=== PATIENT | male | born 1965 | race Caucasian/White ===

== ENCOUNTER 2017-03-14 11:31 | Emergency (ER) | payer OTHER ==
[~2017-03-14] VITALS: Ht 182.9 cm; Wt 89.8 kg
[~2017-03-14 11:31] MED LIST: HYDR-5688 PO; IBUP-1428 PO; METHADONE LIQUID PO
[2017-03-14 11:34] VITALS: TEMP 36.9; Ht 182.9 cm; Wt 89.8 kg
[2017-03-14] MEDS ORDERED: METH5TAB2 PO (11:45)
[2017-03-14] MEDS ORDERED: CLC/300 PO (12:10)
--- NOTE | 2017-03-14 12:11 | EMERGENCY ROOM VISIT NOTE ---
ED Visit Note First contact with patient: 11:37 CHIEF COMPLAINT: Right upper dental pain and facial swelling 3 days HISTORY OF PRESENT ILLNESS: Patient is a 51-year-old white male who presents to the emergency department from his dentist office for evaluation of right facial swelling due to a dental abscess. Patient reports his teeth are grossly decayed and he is scheduled to have a complete extraction performed by Dr. Mcneal in [place] on April 05. He was seen by a female dentist at [facility] couple of weeks ago. She pulled one tooth at that time, and place the patient on some antibiotics. She set him up with the oral surgeon for an extraction. He reports that they could've pulled the teeth sooner but he is going away on vacation over Memorial Day and wanted to wait until after his medication to have the teeth pulled. He states that he had a prescription for penicillin, but had been off of antibiotics for a couple of weeks. On Sunday he began to notice some increased discomfort and swelling in the right upper lateral central incisor. He states that this tooth has given him problems before. It had been loose, but appears to have tightened up more recently. He states the pain started Sunday morning, then swelling develop into his right upper cheek Sunday evening. He started penicillin 500 mg every 6 hours at that time. He notes the pain and the throbbing have subsided but he still has swelling in the right upper cheek. He has been taking ibuprofen for discomfort. He went back to the dentist today, and she stated that there was nothing she could do for him , but she directed him here to the emergency department to have the area "drained." The patient denies any fever. He states that the pain is better since he has started the antibiotics and rates his discomfort a 0/10. He denies any blood, pus or foul tasting fluid in his mouth. REVIEW OF SYSTEMS: Review of systems as per HPI. All other systems reviewed were negative. At least 6 systems reviewed. PMH: Electronic medical records are reviewed and summarized as above/below. See Problem List. Patient has a history of opioid dependence secondary to his chronic low back pain after his surgery many years ago. He has been on methadone therapy, and is weaning, he states he is down to 5 mg per day and expects to be off within the next week. SOCIAL HISTORY: Patient lives at home with his spouse. Positive tobacco and alcohol use, does not specify the amounts. He is employed. PHYSICAL EXAM: Vital Signs: Reviewed Nurse's notes. CONSTITUTIONAL: Patient is a well-appearing 51-year-old white male who is awake and alert and in no acute distress. Vital signs are stable. EARS: Tympanic membranes intact, not inflamed, have normal contour. External canals clear. MOUTH: Overall the patient has poor dentition. Generalized dental decay and gingival disease is noted. The right upper lateral incisor is loose, grossly carious, but not significantly tender to percussion. There is slight swelling along the gumline although no focal abscess. Mucous membranes moist, no lesions , tongue and gums appear normal. THROAT: No pharyngeal injection, exudates, or tonsillar hypertrophy. Airway is patent. No trismus noted. FACE: Patient and induration of the right cheek, no associated fluctuance or cellulitic changes noted. NECK: No lymphadenopathy. ED course: The patient was seen and assessed as above. His old records are reviewed. He has gross dental decay and no doubt has an apical abscess at the right upper lateral incisor in question. He has expected inflammatory/reactive changes into the right cheek and face. He does not have any evidence for drainable abscess in the mouth, no facial cellulitis. There is no evidence for Ramy's angina. He was treated with Rocephin 1 g IM in the emergency department. He will continue the pen VK, but was provided a prescription for clindamycin, should he not show any significant changes in the next 24-48 hours. He was encouraged to follow up with his oral surgeon as he has scheduled for extraction, but was welcome to return to the emergency department at any point if his symptoms are worsening. Problem List Medical Problems: (1) Lumbar stenosis Status: Resolved Surgical Problems: (1) History of lumbar fusion Status: Resolved Current/Historical Medications Scheduled Clindamycin HCl (Clindamycin HCl), 1 CAP PO TID Methadone Hcl (Dolophine), 5 MG PO DAILY Allergies Coded Allergies: No Known Allergies (Verified , 04/17/16) Vital Signs Date Time Temp Pulse Resp B/P Pulse Ox O2 Delivery O2 Flow Rate FiO2 03/14/17 12:22 95 18 172/94 97 03/14/17 11:34 36.9 108 20 143/98 98 Room Air Medications Administered Medications (Trade) Dose Ordered Sig/Laureano Route Start Time Stop Time Status Last Admin Dose Admin Ceftriaxone Sodium (Rocephin Im) 1,000 mg NOW ONCE IM 03/14/17 12:15 03/14/17 12:16 DC 03/14/17 12:15 1,000 MG Departure Information Impression Primary Impression: Dental abscess Prescriptions Clindamycin HCl (Clindamycin HCl) 300 Mg Cap 1 CAP PO TID for 10 Days, #30 CAP 1 Refill Prov: Dang Pitts PA 03/14/17 Referrals No Doctor, Assigned (PCP) Patient Instructions [facility] Additional Instructions Finish penicillin as prescribed. If your symptoms do not improve in the next 48-72 hours, stop the penicillin and take the clindamycin. Clindamycin 300 mg: Take one pill 3 times daily for 10 days for your dental infection. All antibiotics can cause diarrhea. If this occurs and you feel worse or it does not resolve in 1-2 days follow up with your doctor or return to the Emergency Department as this could be signs of serious underlying problems. Any medication can cause an allergic reaction, stop the pills immediately and return to the ER for rash, hives, breathing difficulties, or swelling. Ibuprofen(Motrin, Advil) may be used for fever or pain. Use 600mg every six hours as needed. Take with food. Avoid using more than 2400mg in a 24 hour period. Do not use 2400mg per day for more than three consecutive days without physician direction. Prolonged inappropriate use can lead to stomach upset or ulcers. (AND/OR) Acetaminophen(Tylenol) may be used for fever or pain. Use 1000mg every six hours as needed. Avoid using more than 4000mg in a 24 hour period. Saltwater gargles after meals and before bedtime. Soft foods. Return to the emergency department for increasing pain or swelling, fevers, vomiting, inability to swallow, worsening symptoms or as needed. Follow-up with your oral surgeon as you have scheduled for extraction.
[2017-03-14] MEDS ORDERED: CEFTRIAXONE SOD 350MG/ML 1 GM VIAL IM ONE (12:15)
[2017-03-14 12:22] VITALS: BP 172/94; PULSE 95; O2SAT 97
== END 2017-03-14 12:23 | disposition home or self-care (01) ==
LOC: C.EDB 11:31 → C.EDD 12:23
DX: K04.7 Periapical abscess without sinus (principal); M54.5 Low back pain; G89.29 Other chronic pain; F11.20 Opioid dependence, uncomplicated; Z72.0 Tobacco use; Z79.899 Other long term (current) drug therapy

== ENCOUNTER 2018-03-16 10:37 | Emergency (ER) | payer OTHER ==
[~2018-03-16] VITALS: Ht 180.3 cm; Wt 94.2 kg
[2018-03-16 10:45] VITALS: TEMP 36.7; Ht 180.3 cm; Wt 94.2 kg
[2018-03-16] MEDS ORDERED: HYDR-3983 PO (11:01)
[2018-03-16] MEDS ORDERED: KETO10TA PO (11:39)
[2018-03-16 11:49] VITALS: BP 145/90; PULSE 67; O2SAT 95
--- NOTE | 2018-03-16 15:01 | EMERGENCY ROOM VISIT NOTE ---
ED Visit Note First contact with patient: 11:00 Chief Complaint: Back pain. History of Present Illness: Mr. Mercado is a 52-year-old white male who ambulates into the ED complaining of lumbar back pain. Historically patient reports approximately 10 years ago he had a discectomy and spinal fusion done by Dr. Glover. He was having difficulty and was most recently seen by Dr. Meier and was told he would need a revision. He was given a steroid injection a few weeks ago and started having worsening pain. He was placed on oral steroids and had no additional relief. He was prescribed narcotics for his pain and he is running out of his pain medication. He reports he saw Dr. Meier yesterday and was told that another steroid injection would be needed but that would have to be held off for approximately 1 month. Additionally they talked about additional narcotic prescriptions even though he does have one that his current and it was encouraged that he follow up with his primary care provider. He reports [place] the [place] the [place] and his pain is still severe. He attempted to follow-up with his primary care provider and was unsuccessful. He presents today for possible prescription for narcotics. Currently he is complaining of pain just right lateral to the lumbar spine at the L3 L5 area. He describes his pain as a pressure, achy and sharp sensation. He rates his discomfort 9/10. He denies true radiation of pain but does report he has a achy sensation down the anterior thighs bilaterally and minimally into the bilateral buttocks. His pain worsens with all movement of the back, palpation. He has not identified any alleviating factors related to the pain. He has been using his prescribed narcotics and steroids without relief of his discomfort. Associated with his pain he does report that sometimes when he is walking and talking his legs become weak and he feels like he is legs are going to collapse; but this has not happened. He reports some mild numbness sensation in his scrotum and testicles. He denies recent direct or repetitive trauma, fevers, chills, sweats, skin eruptions, skin color changes, decreased appetite, abdominal pain, nausea/ vomiting, leg numbness/tingling, bowel or bladder dysfunction, rectal paresthesias. Review of Systems: As noted above in history of present illness. All body systems were reviewed and found to be negative as noted above. Past Medical History: As previously noted. Current Medications: [place]. Allergies to Medications: Patient denies. Social History: Patient is currently employed; he feels safe in his home environment; he admits tobacco and alcohol use. Physical Examination: Vital Signs: Date Time Temp Pulse Resp B/P (MAP) Pulse Ox O2 Delivery O2 Flow Rate FiO2 03/16/18 11:49 67 145/90 95 03/16/18 10:45 36.7 81 18 133/62 94 Room Air GENERAL: 52-year-old male in mild to moderate distress due to pain, nontoxic- appearing, afebrile and hemodynamically stable. NEUROLOGICAL: Awake, alert and oriented to person, place and time. Answering questions appropriately and following commands. Normal gait. Good hand eye coordination. No focal motor or sensory deficits. SKIN: Warm, dry and pink. No soft tissue eruptions or trauma noted. HEENT: Atraumatic and normocephalic. BACK: No tenderness over the bony thoracic and lumbar spine. No paraspinous muscle spasm. No bony deformity or crepitus. Minimally positive left lower extremity straight leg raise test. Negative on the right. No CVA tenderness. THORAX: Lungs sounds are clear to auscultation and equal bilaterally with symmetrical chest wall. ABDOMEN: Flat, soft and nontender. Positive bowel sounds in all quadrants. No guarding, rigidity or organomegaly. EXTREMITIES: Moves all extremities well on command and with purpose. All distal neurovascular statuses are intact and equal bilaterally. No calf tenderness or cords. 5/5 muscle strength in all movements of the hips, knees, ankles and feet. +2 Achilles and patellar deep tendon reflexes intact and equal bilaterally. Able to distinguish light sensations to all dermatomes of the lower legs and feet. ED Course: Patient is assessed as noted above. Patient's medication list was reviewed. Patient's case was reviewed with Dr. Broussard; we agreed on diagnostic approach, treatment, disposition and plan. Patient was educated about today's findings and instructed on his treatment plan ; he verbalized understanding and agreement with this plan. Clinical Impression: Acute on chronic lumbar back pain. Disposition: Patient discharged home in stable condition; prior to departure he was reassessed and subjectively reported he was feeling slightly better and rated his discomfort 6/10. Plan: Patient was encouraged to continue his medications as prescribed including his narcotics. Patient was prescribed 10 mg of Toradol every 6 hours between his narcotic prescription for pain. Patient was encouraged use ice on areas of pain 5-6 times a day for 1230-45 minutes. Patient was encouraged to follow-up with his back surgeon on return to the area for definitive care and treatment. Patient was encouraged to return to the emergency department for worsening pain , fevers bowel and bladder dysfunction, rectal paresthesias, lower extremity weakness and numbness or any new/concerning symptoms.
[2018-03-19] MEDS ORDERED: KETO10TA PO (14:22)
[2018-03-19] MEDS ORDERED: METH1TAB81 PO (14:22)
[2018-03-19] MEDS ORDERED: IBUP-1459 PO (14:22)
== END 2018-03-16 11:45 | disposition home or self-care (01) ==
LOC: C.EDB 10:39 → C.EDD 11:45
DX: M54.5 Low back pain (principal); G89.29 Other chronic pain; Z98.1 Arthrodesis status; Z79.899 Other long term (current) drug therapy; Z72.0 Tobacco use

== ENCOUNTER → 2018-03-28 | Day surgery (SDC) | payer OTHER ==
[2018-03-19 14:23] VITALS: Ht 180.3 cm; Wt 95.5 kg
[~2018-03-28] VITALS: Ht 180.3 cm; Wt 95.5 kg
[~2018-03-28] MED LIST changes: +DEXAMETHASONE SOD INJ 4 MG/ML VIAL ONE; +HYDR-3714 PO; -HYDR-5688 PO; -IBUP-1428 PO; +IBUP-1459 PO; +KETO10TA PO; +LIDOCAINE HCL 1% MPF 5 ML VIAL ONE; +METH1TAB81 PO; -METHADONE LIQUID PO
--- NOTE | 2018-03-28 08:21 | History & Physical Bridge - SC ---
H&P Re-Evaluation Bridge Note: I have examined the patient, reviewed the History & Physical and in the interval since the performance of the History & Physical I have noted the following changes of clinical significance: No changes noted
--- NOTE | 2018-03-28 08:41 | Discharge Instructions-SurgCtr ---
Discharge Instructions Date of Service March 28, 2018. Visit Reason for Visit: Lumbar Spinal Stenosis Discharge Discharge Diagnosis / Problem: same Discharge Goals Goal(s): Improve function Activity Recommendations Activity Limitations: resume your previous activity Anesthesia . Post Anesthesia Instructions: If you have had General Anesthesia or IV Sedation: * Do not drive today. * Resume driving when surgeon permits. * Do not make important decisions or sign legal documents today. * Call surgeon for: 1. Temperature elevations greater than 101 degrees F. 2. Uncontrollable pain. 3. Excessive bleeding. 4. Persistent nausea and vomiting. 5. Medication intolerance (nausea, vomiting or rash). * For nausea and vomiting use only clear liquids such as: tea, soda, bouillon until nausea subsides, then gradually increase diet as tolerated. * If you have any concerns or questions, call your surgeon's office. If physician is unavailable and it is an emergency, call 911 or go to the nearest emergency room. . Diet Recommendations Home Diet: no limitations Procedures Procedures Performed: EPIDURAL STEROID INJECTION L2-3 Pending Studies Studies pending at discharge: no Medical Emergencies . Who to Call and When: Medical Emergencies: If at any time you feel your situation is an emergency, please call 911 immediately. . Non-Emergent Contact Non-Emergency issues call your: Primary Care Provider Call Non-Emergent contact if: your pain is concerning you . . "Provider Documentation" section prepared by Deng Meier. .
--- NOTE | 2018-03-28 08:41 | [facility] Post Operative Brief Note ---
Immediate Operative Summary Operative Date March 28, 2018. Pre-Operative Diagnosis LUMBAR SPINAL STENOSIS Post-Operative Diagnosis LUMBAR SPINAL STENOSIS Procedure(s) Performed EPIDURAL STEROID INJECTION L2-[address] Cris HARVEY Physical Therapist Technician Surgeon(s) 0 Estimated Blood Loss 0 Findings Consistent with Post-Op Diagnosis Specimens 0 Anesthesia Type Local Overlapping Procedure I was immediately available: during the entire case
[2018-03-28 08:42] VITALS: TEMP 36.9
[2018-03-28 09:01] VITALS: BP 142/93; PULSE 59; O2SAT 97
--- NOTE | 2018-03-28 09:25 | OPERATIVE REPORT ---
DATE OF OPERATION: 03/28/2018 PREOPERATIVE DIAGNOSIS: Stenosis lumbar spine L2-3. POSTOPERATIVE DIAGNOSIS: Same. PROCEDURE: Epidural steroid 2-3 lumbar central. DESCRIPTION OF PROCEDURE: The patient was taken to the minor procedure room and placed prone, prepped and draped sterile. I engaged the 22 gauge Tuohy needle to the 2-3 interspace using fluoroscopic guidance. 2 mL of dexamethasone injected without incident. There were no complications. No problems. He was returned to PACU improved stable condition. I attest to the content of the Intraoperative Record and any orders documented therein. Any exception s are noted below.
== END | disposition home or self-care (01) ==
LOC: X.SURG 07:09
PROVIDERS: ATTEND Orthopaedic Surgery Orthopaedic Surgery of the Spine
DX: M48.061 Spinal stenosis, lumbar region without neurogenic claudication (principal); F17.200 Nicotine dependence, unspecified, uncomplicated

== ENCOUNTER 2024-03-10 13:44 | Observation (INO) ==
[2024-03-10 14:49] LABS: Basophils # (auto) 0.04 K/uL (0.00-0.20); Basophils % (auto) 0.3 %; Eosinophils # (auto) 0.02 K/uL (0.00-0.50); Eosinophils % (auto) 0.2 %; Hematocrit (blood only) 51.5 % (42.0-52.0); Hemoglobin 17.1 g/dl (14.0-18.0); Immature Granulocytes # (auto) 0.18 K/uL (0.01-0.20); Immature Granulocytes % (auto) 1.4 %; Lymphocytes # (auto) 1.19 K/uL (1.20-3.40); Lymphocytes % (auto) 9.5 %; Mean Corpuscular Hemoglobin 30.1 pg (25.0-34.0); Mean Corpuscular Hgb Conc 33.2 g/dL (32.0-36.0); Mean Corpuscular Volume 90.5 fL (80.0-100.0); Mean Platelet Volume 9.3 fL (9.4-12.4); Monocytes # (auto) 0.81 K/uL (0.11-0.59); Monocytes % (auto) 6.5 %; Neutrophils # (auto) 10.28 K/uL (1.40-6.50); Neutrophils % (auto) 82.1 %; Platelet Count 314 K/uL (130-400); RDW Coefficient of Variation 13.2 % (11.5-14.5); RDW Standard Deviation 43.6 fL (36.4-46.3); Red Blood Count 5.69 M/uL (4.70-6.10); White Blood Count 12.52 K/ul (4.8-10.8)
[2024-03-10 14:55] LABS: Albumin Level 4.9 gm/dl (3.4-5.0); Calcium 9.8 mg/dl (8.6-10.3)
[2024-03-10 15:01] LABS: Troponin I High Sensitivity 9.9 pg/ml (0-20)
--- NOTE | 2024-03-10 15:09 | Emergency Department Note ---
History of Present Illness General Chief complaint: Abdominal Pain Stated complaint: chest pains Time Seen by Provider: 03/10/24 15:06 History of Present Illness Maximum Pain Intensity: 10 NAME: RAMON GONSALES AGE: 58 SEX: M : 1965 ARRIVES VIA: Walk-In INFORMANT: Patient ED PROVIDER(S): SARA Sales, Clovis Lantigua MD The patient is a pleasant 58-year-old male who arrives to the emergency department for epigastric abdominal pain. He reports that the pain began yesterday around noon, however today the pain has extended into his lower abdomen. He reports the pain is persistent, with nausea and vomiting. He denies chest pain, shob, fevers, recent illnesses, new foods, urinary or bowel issues. Home Medications Medication Instructions Recorded Confirmed Type ibuprofen 800 mg tablet 800 mg PO Q6H PRN Pain 08/12/20 03/10/24 History medical marjuana .Route 09/11/22 12/14/23 History rosuvastatin 5 mg tablet (Crestor) 5 mg PO DAILY #90 tabs 10/09/23 03/10/24 Rx oxycodone 5 mg tablet 5 - 10 mg (1 - 2 x 5 mg) PO Q6H 03/10/24 Rx PRN pain #14 tabs Allergies Allergy/AdvReac Type Severity Reaction Status Date / Time No Known Allergies Allergy Verified 12/14/23 13:28 Past Med/Surg History Medical History (Updated 03/11/24 @ 09:25 by SARA Dahl) Acute appendicitis with localized peritonitis Chronic back pain Medical marijuana use for severe back pain Surgical History H/O colonoscopy 08/2020 History of tooth extraction all teeth History of lumbar fusion x2 Family History Father Diabetes Myocardial infarction Other Clotting disorder No family history of adverse response to anesthesia Denies family history of Ovarian cancer Prostate cancer Breast cancer Colorectal cancer Social History Smoking Status: Current every day smoker Tobacco Type: Cigarettes Cigarettes Per Day: 15; Second Hand Exposure: Yes (parents smoked); Do You Dip or Chew Tobacco: No; Hx Alcohol Use: Yes Alcohol type: beer Alcohol Intake Frequency: 2-4 x/Month Hx Substance Use: Yes Prescribed Medications: Marijuana Last Used Substance: Unknown Last Used Substance Other:: uses daily Preferred Language: Syriac Communication Ability: Effective Visual Impairment: No Limitations Hearing Ability: Hard of Hearing Recooperer Required: No Beliefs That Will Affect Care: None marital status: Single Current Living Situation: Family and Significant Other Current Living Situation Comment: Lives with and son current occupational status: employed current occupation: [employer] Other Information That Helps Us Care for You: No Feels Safe at Home: Yes Safety Concerns: Feels Safe At This Time Childhood Exposure to Second-Hand Smoke: Yes Dental Care, Regularly: No Physical Activity Frequency: Does not Exercise Physical Activity Frequency Comment: active at work Seatbelt Use: always Sunscreen Use: No Assistive Devices: Denture - Upper, Denture - Lower and Glasses Physical Exam Vital Signs Vital Signs - 24 hr 03/10/24 13:47 03/10/24 15:42 03/10/24 16:03 Temperature 36.8 C Temperature Source Oral Pulse Rate 122 H Pulse Rate [Left Apical] 110 H 112 H Pulse Rhythm Regular Pulse Rhythm [Left Apical] Regular Pulse Strength Normal Pulse Strength [Left Apical] Normal Respiratory Rate 20 20 Respiratory Effort / Characteristics Non-Labored Spontaneous Non-Labored Spontaneous Respiratory Depth Normal Normal Respiratory Pattern Regular Blood Pressure 161/113 H Blood Pressure [Left Arm] 166/116 H 156/116 H Blood Pressure Mean 129 Blood Pressure Mean [Left Arm] 132 129 Blood Pressure Position Sitting Blood Pressure Position [Left Arm] Pulse Oximetry 98 92 94 Oxygen Delivery Method Room Air Room Air Sepsis Recent Fever Within 48 Hours No Sepsis New/Unexplained Change in Mental Status No Sepsis Action Taken by Nursing No Action Required 03/10/24 17:05 03/10/24 17:08 03/10/24 17:15 Temperature 37.3 C Temperature Source Oral Pulse Rate Pulse Rate [Left Apical] 114 H 110 H Pulse Rhythm Pulse Rhythm [Left Apical] Regular Pulse Strength Pulse Strength [Left Apical] Normal Respiratory Rate 18 19 Respiratory Effort / Characteristics Non-Labored Spontaneous Respiratory Depth Normal Respiratory Pattern Regular Blood Pressure Blood Pressure [Left Arm] 132/99 151/111 H Blood Pressure Mean Blood Pressure Mean [Left Arm] 110 124 Blood Pressure Position Blood Pressure Position [Left Arm] Semi-fowlers Pulse Oximetry 92 92 Oxygen Delivery Method Room Air Room Air Room Air Sepsis Recent Fever Within 48 Hours Sepsis New/Unexplained Change in Mental Status Sepsis Action Taken by Nursing VITALS: Vitals are noted on the nurse's note and reviewed by myself. Vital signs stable. GENERAL: 58-year-old male, in no acute distress, nondiaphoretic, well-developed well-nourished. SKIN: The skin was without rashes, erythema, edema, or bruising. HEAD: Normocephalic atraumatic. HEART: Regular rate and rhythm without murmurs gallops or rubs. LUNGS: Clear to auscultation bilaterally without wheezes, rales or rhonchi. No retractions or accessory muscle use. ABDOMEN: Positive bowel sounds x 4. Soft, tender to palpation diffusely, no rebound tenderness or guarding. NEURO: Patient was alert and oriented to person place and time. No focal neurological deficits. Course Administered Medications Acetaminophen (Acetaminophen 500 Mg Tab) 1,000 mg PO Q8H [facility] Stop: 04/09/24 20:59 Last Admin: 03/11/24 04:47 Dose: 1,000 mg Documented By: Admin: 03/10/24 20:54 Dose: Not Given Documented By: CONG Lactated Ringer's (Lr) 1,000 mls @ 80 mls/hr IV .[id number] [facility] Stop: 04/09/24 19:56 Last Infusion: 03/11/24 07:51 Dose: 80 mls/hr Documented By: Admin: 03/11/24 04:47 Dose: 125 mls/hr Documented By: Infusion: 03/11/24 04:47 Dose: Infused Documented By: Admin: 03/10/24 20:54 Dose: 125 mls/hr Documented By: CONG Piperacillin Sod/Tazobactam (Sod 4.5 gm/ Dextrose) 100 mls @ 25 mls/hr IV Q8H [facility]; Protocol Stop: 03/21/24 01:59 Last Infusion: 03/11/24 06:06 Dose: Infused Documented By: Admin: 03/11/24 01:59 Dose: 25 mls/hr Documented By: CONG Ketorolac Tromethamine (Ketorolac Tromethamine 15 Mg/Ml Vial) 15 mg IV Q6H [facility] Stop: 03/15/24 20:59 Last Admin: 03/11/24 08:03 Dose: 15 mg Documented By: Admin: 03/11/24 02:00 Dose: 15 mg Documented By: Admin: 03/10/24 20:54 Dose: Not Given Documented By: CONG Discontinued Medications Bupivacaine HCl (Bupivacaine 0.5 % 5 Mg/1 Ml Mpf 30ml Vial) Confirm Administered Dose 30 ml .ROUTE .STK-MED ONE Stop: 03/10/24 17:09 Last Admin: 03/10/24 18:34 Dose: 30 ml Documented By: NIKO Cefoxitin Sodium (Cefoxitin Sod 1,000 Mg Vial) Confirm Administered Dose 1,000 mg .ROUTE .STK-MED ONE Stop: 03/10/24 17:28 Last Admin: 03/10/24 17:50 Dose: 1,000 mg Documented By: DAO Cefoxitin Sodium (Cefoxitin Sod 1,000 Mg Vial) Confirm Administered Dose 1,000 mg .ROUTE .STK-MED ONE Stop: 03/10/24 17:29 Last Admin: 03/10/24 17:50 Dose: 1,000 mg Documented By: DAO Sodium Chloride (Nss) 1,000 mls @ 999 mls/hr IV .Q1H1M ONE Stop: 03/10/24 16:15 Last Infusion: 03/10/24 20:14 Dose: Infused Documented By: Admin: 03/10/24 15:33 Dose: 999 mls/hr Documented By: GARCIA Cefoxitin Sodium 2,000 mg/ (Dextrose) 50 mls @ 100 mls/hr IV NOW STA; Protocol Stop: 03/10/24 17:57 Last Admin: 03/10/24 17:50 Dose: Not Given Documented By: DAO Piperacillin Sod/Tazobactam (Sod 4.5 gm/ Dextrose) 100 mls @ 200 mls/hr IV NOW ONE; Protocol Stop: 03/10/24 20:44 Last Infusion: 03/10/24 21:32 Dose: Infused Documented By: Admin: 03/10/24 20:53 Dose: 200 mls/hr Documented By: CONG Ioversol (Optiray 320 100ml) 94 ml IV ONCE ONE Stop: 03/10/24 15:56 Last Admin: 03/10/24 15:55 Dose: 94 ml Documented By: MEERA Ketorolac Tromethamine (Ketorolac Tromethamine 15 Mg/Ml Vial) 10 mg IV NOW ONE Stop: 03/10/24 15:16 Last Admin: 03/10/24 15:35 Dose: 10 mg Documented By: GARCIA Labetalol HCl (Labetalol Hcl Iv 5 Mg/Ml 20ml) 5 mg IV Q5M PRN PRN Reason: PACU Use-SBP>160 or DBP>100 Stop: 03/11/24 01:17 Last Admin: 03/10/24 19:22 Dose: 5 mg Documented By: MARGA Co-signed By: RUMA Admin: 03/10/24 19:17 Dose: 5 mg Documented By: MARGA Co-signed By: WT Morphine Sulfate (Morphine Sulfate 4 Mg/Ml 1 Ml Carp\Vial) 4 mg IV NOW STA Stop: 03/10/24 15:16 Last Admin: 03/10/24 15:35 Dose: 4 mg Documented By: GARCIA Ondansetron HCl (Ondansetron Inj 2 Mg/Ml 2 Ml Vial) 4 mg IV NOW STA Stop: 03/10/24 15:16 Last Admin: 03/10/24 15:35 Dose: 4 mg Documented By: GARCIA Medical Decision Making Differential Diagnosis Appendicitis, testicular torsion, infections, diverticulitis, UTI, obstruction, mesenteric ischemia, aortic pathology, inflammatory bowel disease, renal colic, PUD, pancreatitis, biliary pathology, hernia, volvulus, constipation, as well as other pathologies. Medical Records Attestation: I reviewed the patient's medical records. Home Medications Current Medication List: was personally reviewed by me Laboratory Data Attestation: I reviewed the patient's lab results. Leukocytosis, 12.52, stable hemoglobin and hematocrit, troponin 9.9, urinalysis negative for infection. 03/10/24 14:08 03/10/24 14:08 Lab Results 03/10/24 03/10/24 03/10/24 Range/Units 14:08 15:30 17:20 WBC 12.52 H (4.8-10.8) K/ul RBC 5.69 (4.70-6.10) M/uL Hgb 17.1 (14.0-18.0) g/dl Hct 51.5 (42.0-52.0) % MCV 90.5 (80.0-100.0) fL MCH 30.1 (25.0-34.0) pg MCHC 33.2 (32.0-36.0) g/dL RDW Std Deviation 43.6 (36.4-46.3) fL RDW Coeff of Michelle 13.2 (11.5-14.5) % Plt Count 314 (130-400) K/uL MPV 9.3 L (9.4-12.4) fL Immature Gran % (Auto) 1.4 % Neut % (Auto) 82.1 % Lymph % (Auto) 9.5 % [place] % (Auto) 6.5 % Eos % (Auto) 0.2 % Baso % (Auto) 0.3 % Neut # (Auto) 10.28 H (1.40-6.50) K/uL Lymph # (Auto) 1.19 L (1.20-3.40) K/uL [place] # (Auto) 0.81 H (0.11-0.59) K/uL Eos # (Auto) 0.02 (0.00-0.50) K/uL Baso # (Auto) 0.04 (0.00-0.20) K/uL Immature Gran # (Auto) 0.18 (0.01-0.20) K/uL Sodium 136 (136-145) mmol/L Potassium 3.6 (3.5-5.1) mmol/L Chloride 101 (98-107) mmol/L Carbon Dioxide 23 (21-32) mmol/L Anion Gap 12 H (3-11) BUN 16 (6-23) mg/dl Creatinine 0.95 (0.6-1.4) mg/dl Est Cr Clr Drug Dosing 102.2 ml/min Est GFR ( Amer) 103.3 ml/min Est GFR (Non-Af Amer) 89.1 ml/min BUN/Creatinine Ratio 16.8 (10-20) Glucose 147 H (70-99(Fasting)) mg/dl POC Glucose 113 H (70-99) mg/dl Calcium 9.8 (8.6-10.3) mg/dl Total Bilirubin 0.9 (0.2-1.0) mg/dl AST 24 (13-39) U/L ALT 21 (7-52) U/L Alkaline Phosphatase 54 (34-104) U/L Troponin I High Sens 9.9 (0-20) pg/ml Total Protein 8.1 (6.0-8.3) gm/dl Albumin 4.9 (3.4-5.0) gm/dl Globulin 3.2 (2.5-4.0) gm/dl Albumin/Globulin Ratio 1.5 (0.9-2) Lipase 9 L (11-82) U/L Urine Color [place] Urine Appearance Cloudy A (Clear) Urine pH 5.5 (4.5-7.5) Ur Specific [place] 1.029 (1.000-1.030) Urine Protein 3+ H (Negative) Urine Glucose (UA) Negative (Negative) Urine Ketones Trace H (Negative) Urine Blood Trace H (Negative) Urine Nitrite Negative (Negative) Urine Bilirubin 1+ H (Negative) Urine Urobilinogen Negative (Negative) Ur Leukocyte Esterase Trace H (Negative) Urine WBC (Auto) 0-5 (0-5) /hpf Urine RBC (Auto) 0-2 (0-2) /hpf U Hyaline Cast (Auto) 3-5 H (0-2) /lpf U Epithel Cells (Auto) 3-5 H (0-2) /hpf Urine Bacteria (Auto) None Seen (None Seen) Urine Mucus Present A (None Prsent) Imaging Data Radiologist's Impression: Abdomen/Pelvis CT 03/10/24 15:15 CT abd pelvis IV con only CLINICAL HISTORY: diffuse pain TECHNIQUE: Helical axial images of the abdomen and pelvis were obtained and displayed. Automated dose lowering techniques and/or adjustment according to patient size were utilized for this exam. This exam was performed with intravenous contrast. CT DOSE: 1256.55 mGy.cm COMPARISON: Comparison is made to CT abdomen pelvis 05/05/2010 FINDINGS: Lower chest: No acute abnormality. Liver: Hepatic steatosis is noted. Gallbladder and biliary tree: No calcified gallstones. Normal caliber wall. No intra- or extrahepatic biliary ductal dilation. Pancreas: Unremarkable, no focal lesions. Spleen: Calcifications are noted in the spleen compatible with prior granulomatous disease. Adrenals: Unremarkable. Kidneys and ureters: Unremarkable. Bladder: Limited evaluation due to underdistention. Reproductive organs: Unremarkable. Bowel: The appendix is enlarged with a thickened wall, measuring up to 12 mm in diameter. There is surrounding fat stranding but no pneumoperitoneum or fluid collection. Diverticulosis is seen without diverticulitis. Lymph nodes Retroperitoneal: Unremarkable. Pelvic: Unremarkable. Mesenteric: Unremarkable. Peritoneum: Normal. Vessels: Unremarkable. Abdominal wall: Bilateral fat-containing inguinal hernias are seen. Bones: Degenerative changes in the visualized spine. Posterior fixation hardware spans L3-S1. IMPRESSION: 1. Findings are compatible with acute appendicitis without evidence of perforation or abscess formation. 2. Hepatic steatosis. ACT 112: Negative or not required by law. Electronically signed by: Slade Cherry M.D. 03/10/2024 4:23 PM ECG Data Attestation: I personally reviewed and interpreted this ECG as follows: Indication: + abdominal pain Rate (beats per minute): 122 Rhythm: + sinus tachycardia ECG [place]: + Normal ECG ST segments: + Normal ST segments Change: the following changes noted (02/[address] elevation in inferior leads) Blood Pressure Blood Pressure Findings: Elevated blood pressure Blood Pressure Disposition: elevated BP felt to be situational MDM Narrative The patient is a 58-year-old male who arrives to the emergency department for the above-stated complaint. Upon examination, the patient has diffuse TTP with tachycardia. A saline lock was placed, cbc, cmp, lipase, troponin, ekg and urinalysis were obtained. The patient was provided with IV NSS bolus, 4mg IV zofran, as well as toradol and morphine for pain control. CBC show slight leukocytosis, CMP shows no electrolyte abnormalities, lipase, and troponin negative. Urinalysis was negative for infection, and EKG shows sinus tachycardia at a rate of [address] elevation, depression, or ectopy. A CT of the abdomen and pelvis was obtained with showed an acute appendicitis. I contacted Dr. Eller of general surgery who agree to admit the patient with transfer to the OR. Please refer to Dr. Valentin's note for further patient care at this time. Continuous case monitor: Order was placed for continuous case monitor. Patient was placed on the case monitor. Patient was noted to be in sinus tachycardia at an initial rate of 110 bpm. Impression & Plan Abdominal pain, Acute appendicitis Discharge Plan Visit Data Chief Complaint: Abdominal Pain Stated Complaint: chest pains ED Provider: Clovis Lantigua ED Midlevel Provider: Rose Faye Discharge Problem: Abdominal pain, Acute appendicitis Patient Disposition: Admitted As Inpatient Discharge Instructions Interventions: ED Discharge Assessment Last Done: 03/10/24 17:08
[2024-03-10 15:18] LABS: Bilirubin,Total 0.9 mg/dl (0.2-1.0); Potassium 3.6 mmol/L (3.5-5.1)
[2024-03-10 15:24] LABS: Albumin Globulin Ratio 1.5 (0.9-2); BUN Creatinine Ratio 16.8 (10-20); Creatinine Clr Calc Pharmacy 102.2 ml/min; Est GFR (African American) 103.3 ml/min; Est GFR (Non-African American) 89.1 ml/min; Globulin 3.2 gm/dl (2.5-4.0); Total Protein 8.1 gm/dl (6.0-8.3)
[2024-03-10] MEDS: SODIUM CHLORIDE 0.9% 1,000 ML IV ONE (15:33)
[2024-03-10] MEDS: ONDANSETRON INJ 2 MG/ML 2 ML VIAL IV STA (15:35)
[2024-03-10] MEDS: KETOROLAC TROMETHAMINE 15 MG/ML VIAL IV ONE (15:35)
[2024-03-10] MEDS: MoRPHine SULFATE 4 MG/ML 1 ML CARP\\VIAL IV STA (15:35)
[2024-03-10] MEDS: OPTIRAY 320 100ml IV ONE (15:55)
--- NOTE | 2024-03-10 16:25 | CT Scan Report ---
CT abd pelvis IV con only CLINICAL HISTORY: diffuse pain TECHNIQUE: Helical axial images of the abdomen and pelvis were obtained and displayed. Automated dose lowering techniques and/or adjustment according to patient size were utilized for this exam. This e xam was performed with intravenous contrast. CT DOSE: 1256.55 mGy.cm COMPARISON: Comparison is made to CT abdomen pelvis 05/05/2010 FINDINGS: Lower chest: No acute abnormality. Liver: Hepatic steatosis is noted. Gallbladder and biliary tree: No calcified gallstones. Normal caliber wall. No intra- or extrahepatic biliary ductal dilation. Pancreas: Unremarkable, no focal lesions. Spleen: Calcifications are noted in the spleen compatible with prior granulomatous disease. Adrenals: Unremarkable. Kidneys and ureters: Unremarkable. Bladder: Limited evaluation due to underdistention. Reproductive organs: Unremarkable. Bowel: The appendix is enlarged with a thickened wall, measuring up to 12 mm in diameter. There is hodges rrounding fat stranding but no pneumoperitoneum or fluid collection. Diverticulosis is seen without d iverticulitis. Lymph nodes Retroperitoneal: Unremarkable. Pelvic: Unremarkable. Mesenteric: Unremarkable. Peritoneum: Normal. Vessels: Unremarkable. Abdominal wall: Bilateral fat-containing inguinal hernias are seen. Bones: Degenerative changes in the visualized spine. Posterior fixation hardware spans L3-S1. IMPRESSION: 1. Findings are compatible with acute appendicitis without evidence of perforation or abscess format ion. 2. Hepatic steatosis. ACT 112: Negative or not required by law. Electronically signed by: Slade Cherry M.D. 03/10/2024 4:23 PM
[2024-03-10 16:30] LABS: Appearance Urine Cloudy (Clear); Bacteria Urine Automated None Seen (None Seen); Bilirubin Urine 1+ (Negative); Blood Urine Trace (Negative); Color Urine Orange; Glucose Urine UA Negative (Negative); Ketones Urine Trace (Negative); Leukocyte Esterase Urine Trace (Negative); Mucus Urine Present (None Prsent); Nitrite Urine Negative (Negative); Protein Urine 3+ (Negative); RBC Urine Automated 0-2 /hpf (0-2); Specific Gravity Urine 1.029 (1.000-1.030); Urobilinogen Urine Negative (Negative); WBC Urine Automated 0-5 /hpf (0-5); pH Urine 5.5 (4.5-7.5)
--- NOTE | 2024-03-10 16:57 | Anesthesiology Consultation ---
Date of Service March 10, 2024 Assessment & Plan (1) Encounter for pre-operative examination: Chart Review Chart Review: Acceptable Risk for Surgery History Surgery Operation Date: 03/10/24 10:30 Proposed Procedures p Laparoscopic Appendectomy - Kj Eller DO, FACS Height/Weight Height: 5 ft 11 in Weight: 95 kg Allergies Allergy/AdvReac Type Severity Reaction Status Date / Time No Known Allergies Allergy Verified 12/14/23 13:28 Medications Home Medications Medication Instructions Recorded Confirmed Last Taken ibuprofen 800 mg tablet 800 mg PO Q6H PRN Pain 08/12/20 03/10/24 03/09/24 medical marjuana .Route 09/11/22 12/14/23 03/09/24 rosuvastatin 5 mg tablet (Crestor) 5 mg PO DAILY #90 tabs 10/09/23 03/10/24 03/09/24 Past Medical History Medical History Chronic back pain Medical marijuana use for severe back pain Past Family History Family History Father Diabetes Myocardial infarction Other Clotting disorder No family history of adverse response to anesthesia Denies family history of Ovarian cancer Prostate cancer Breast cancer Colorectal cancer Past Surgical History Surgical History H/O colonoscopy 08/2020 History of tooth extraction all teeth History of lumbar fusion x2 Social History Smoking Status: Never smoker tobacco type: cigarettes and smokeless tobacco Smoking cigarettes per day: 10 a day Do You Dip or Chew Tobacco: Yes (1 can every week) Hx Alcohol Use: Yes Alcohol type: beer alcohol intake frequency: a few times a month Hx Substance Use: Yes (medical marijuana card) substance use type: marijuana Last Used Substance Other:: uses daily Physical Exam Vital Signs Last Vital Signs Temp 36.8 C 03/10/24 13:47 Pulse 112 H 03/10/24 16:03 Resp 20 03/10/24 15:42 BP 156/116 H 03/10/24 16:03 Pulse Ox 94 03/10/24 16:03 O2 Del Method Room Air 03/10/24 16:03 Testing Laboratory Results 03/10/24 14:08 03/10/24 14:08 Urine Color [place] 03/10/24 15:30 Urine Appearance Cloudy (Clear) A 03/10/24 15:30 Urine pH 5.5 (4.5-7.5) 03/10/24 15:30 Ur Specific [place] 1.029 (1.000-1.030) 03/10/24 15:30 Urine Protein 3+ (Negative) H 03/10/24 15:30 Urine Glucose (UA) Negative (Negative) 03/10/24 15:30 Urine Ketones Trace (Negative) H 03/10/24 15:30 Urine Nitrite Negative (Negative) 03/10/24 15:30 Ur Leukocyte Esterase Trace (Negative) H 03/10/24 15:30 Urine WBC (Auto) 0-5 /hpf (0-5) 03/10/24 15:30 Urine RBC (Auto) 0-2 /hpf (0-2) 03/10/24 15:30 U Hyaline Cast (Auto) 3-5 /lpf (0-2) H 03/10/24 15:30 U Epithel Cells (Auto) 3-5 /hpf (0-2) H 03/10/24 15:30 Urine Bacteria (Auto) None Seen (None Seen) 03/10/24 15:30 Electrocardiogram Date: 03/10/24 Findings: + ST @ (122)
[2024-03-10] MEDS ORDERED: PROPOFOL IV EMULSION 10 MG/ML 20 ML VIAL IV ONE (17:12)
[2024-03-10] MEDS ORDERED: fentaNYL citrate PF 100 MCG/2 ML VIAL ONE (17:13)
[2024-03-10] MEDS ORDERED: LIDOCAINE 2% 2 ML VIAL/AMP(20MG/ML) INFIL ONE (17:13)
[2024-03-10] MEDS ORDERED: MIDAZOLAM HCL 1 MG/ML 2ML VIAL ONE (17:14)
[2024-03-10] MEDS ORDERED: ROCURONIUM BROMIDE 10 MG/ML 5 ML VIAL IV ONE (17:15)
[2024-03-10] MEDS ORDERED: HYDROmorphone INJ 1 MG/ML SYRINGE IV PRN (17:17)
[2024-03-10] MEDS ORDERED: PROMETHAZINE HCL 6.25 MG in SODIUM CHLORIDE 0.9% 50 ML IV PRN (17:17)
[2024-03-10] MEDS ORDERED: ONDANSETRON INJ 2 MG/ML 2 ML VIAL IV PRN (17:17)
[2024-03-10] MEDS ORDERED: KETOROLAC 30 MG/ML VIAL IV PRN (17:17)
[2024-03-10] MEDS ORDERED: ATROPINE SULFATE 0.1 MG/ML 10ML SYR IV PRN (17:17)
--- NOTE | 2024-03-10 17:19 | History & Physical Report ---
Date of Service March 10, 2024 Assessment & Plan (1) Acute appendicitis with localized peritonitis: Plan: Acute appendicitis plan for laparoscopic appendectomy risks discussed to include bleeding, infection, normal appendix, need for future or more extensive surgery, damage to surrounding structures, abscess, conversion to open, and risks of anesthesia Abx pre op likely discharge from pacu wound care instructions, activity restrictions, and return precautions given f/u in 2 weeks (2) Tobacco dependence: (3) History of lumbar fusion: (4) Hyperlipidemia: (5) Medical marijuana use: (6) Chronic back pain: History of Present Illness Chief Complaint: abd pain Primary Care Provider: Yoseph Bailey DO Presented to ED w/ 24 hours of abd pain. [place] a little discomfort and sick over last week. Last night had epigastric pain, this morning migrated to RLQ. No prior abd surgeries, no significant medical problems. No blood thinners. Allergies Allergy/AdvReac Type Severity Reaction Status Date / Time No Known Allergies Allergy Verified 12/14/23 13:28 Home Medications Medication Instructions Recorded Confirmed Type ibuprofen 800 mg tablet 800 mg PO Q6H PRN Pain 08/12/20 03/10/24 History medical marjuana .Route 09/11/22 12/14/23 History rosuvastatin 5 mg tablet (Crestor) 5 mg PO DAILY #90 tabs 10/09/23 03/10/24 Rx Past Med/Surg History Medical History (Updated 03/10/24 @ 17:17 by Kj Eller DO, FACS) Acute appendicitis with localized peritonitis Chronic back pain Medical marijuana use for severe back pain Surgical History H/O colonoscopy 08/2020 History of tooth extraction all teeth History of lumbar fusion x2 Family History Father Diabetes Myocardial infarction Other Clotting disorder No family history of adverse response to anesthesia Denies family history of Ovarian cancer Prostate cancer Breast cancer Colorectal cancer Social History Smoking Status: Never smoker Tobacco Type: Cigarettes Cigarettes Per Day: 10 a day; Second Hand Exposure: Yes (parents smoked); Do You Dip or Chew Tobacco: Yes (1 can every week); Hx Alcohol Use: Yes Alcohol type: beer Alcohol Intake Frequency: 2-4 x/Month Hx Substance Use: Yes (medical marijuana card) Prescribed Medications: Marijuana Last Used Substance Other:: uses daily Preferred Language: Uzbek Communication Ability: Effective Visual Impairment: No Limitations Hearing Ability: Hard of Hearing Party Plan Dealer Required: No Beliefs That Will Affect Care: None marital status: Single Current Living Situation: Spouse and Family Current Living Situation Comment: Lives with and son current occupational status: employed current occupation: [employer] Feels Safe at Home: Yes Childhood Exposure to Second-Hand Smoke: Yes Dental Care, Regularly: No Physical Activity Frequency: Does not Exercise Physical Activity Frequency Comment: active at work Seatbelt Use: always Sunscreen Use: No Assistive Devices: Denture - Upper, Denture - Lower and Glasses Review of Systems Review of Systems: All systems reviewed & are unremarkable except as noted in HPI & below Physical Exam Constitutional: WD/WN, vitals as above + overweight Respiratory: normal respiratory effort, lungs clear to auscultation Cardiovascular: RRR, no murmur, no edema Gastrointestinal (Abdomen): Percussion/Palpation: + abdomen tender (RLQ w/ guarding), + guarding and abdomen soft; abdomen not rigid and no hepatosp lenomegaly Results & Data Results & Data Vital Signs (Past 12 Hours) Vital Signs Temp Pulse Pulse Resp BP BP Pulse Ox 03/10/24 17:08 03/10/24 17:05 114 H 18 132/99 92 03/10/24 16:03 112 H 156/116 H 94 03/10/24 15:42 110 H 20 166/116 H 92 03/10/24 13:47 36.8 C 122 H 20 161/113 H 98 O2 Del Method 03/10/24 17:08 Room Air 03/10/24 17:05 Room Air 03/10/24 16:03 Room Air 03/10/24 15:42 03/10/24 13:47 Room Air Laboratory Results Laboratory Results - last 24 hr 03/10/24 03/10/24 14:08 15:30 WBC 12.52 H RBC 5.69 Hgb 17.1 Hct 51.5 MCV 90.5 MCH 30.1 MCHC 33.2 RDW Std Deviation 43.6 RDW Coeff of Michelle 13.2 Plt Count 314 MPV 9.3 L Immature Gran % (Auto) 1.4 Neut % (Auto) 82.1 Lymph % (Auto) 9.5 Crook % (Auto) 6.5 Eos % (Auto) 0.2 Baso % (Auto) 0.3 Neut # (Auto) 10.28 H Lymph # (Auto) 1.19 L Crook # (Auto) 0.81 H Eos # (Auto) 0.02 Baso # (Auto) 0.04 Immature Gran # (Auto) 0.18 Sodium 136 Potassium 3.6 Chloride 101 Carbon Dioxide 23 Anion Gap 12 H BUN 16 Creatinine 0.95 Est Cr Clr Drug Dosing 102.2 Est GFR ( Amer) 103.3 Est GFR (Non-Af Amer) 89.1 BUN/Creatinine Ratio 16.8 Glucose 147 H Calcium 9.8 Total Bilirubin 0.9 AST 24 ALT 21 Alkaline Phosphatase 54 Troponin I High Sens 9.9 Total Protein 8.1 Albumin 4.9 Globulin 3.2 Albumin/Globulin Ratio 1.5 Lipase 9 L Urine Color [place]don Urine Appearance Cloudy A Urine pH 5.5 Ur Specific Heth 1.029 Urine Protein 3+ H Urine Glucose (UA) Negative Urine Ketones Trace H Urine Blood Trace H Urine Nitrite Negative Urine Bilirubin 1+ H Urine Urobilinogen Negative Ur Leukocyte Esterase Trace H Urine WBC (Auto) 0-5 Urine RBC (Auto) 0-2 U Hyaline Cast (Auto) 3-5 H U Epithel Cells (Auto) 3-5 H Urine Bacteria (Auto) None Seen Urine Mucus Present A Diagnostic Findings CT personally reviewed and interpreted, note acute appendicitis w/o perforation or abscess. Umb hernia. Abdomen/Pelvis CT 03/10/24 15:15 CT abd pelvis IV con only CLINICAL HISTORY: diffuse pain TECHNIQUE: Helical axial images of the abdomen and pelvis were obtained and displayed. Automated dose lowering techniques and/or adjustment according to patient size were utilized for this exam. This exam was performed with intravenous contrast. CT DOSE: 1256.55 mGy.cm COMPARISON: Comparison is made to CT abdomen pelvis 05/05/2010 FINDINGS: Lower chest: No acute abnormality. Liver: Hepatic steatosis is noted. Gallbladder and biliary tree: No calcified gallstones. Normal caliber wall. No intra- or extrahepatic biliary ductal dilation. Pancreas: Unremarkable, no focal lesions. Spleen: Calcifications are noted in the spleen compatible with prior granulomatous disease. Adrenals: Unremarkable. Kidneys and ureters: Unremarkable. Bladder: Limited evaluation due to underdistention. Reproductive organs: Unremarkable. Bowel: The appendix is enlarged with a thickened wall, measuring up to 12 mm in diameter. There is surrounding fat stranding but no pneumoperitoneum or fluid collection. Diverticulosis is seen without diverticulitis. Lymph nodes Retroperitoneal: Unremarkable. Pelvic: Unremarkable. Mesenteric: Unremarkable. Peritoneum: Normal. Vessels: Unremarkable. Abdominal wall: Bilateral fat-containing inguinal hernias are seen. Bones: Degenerative changes in the visualized spine. Posterior fixation hardware spans L3-S1. IMPRESSION: 1. Findings are compatible with acute appendicitis without evidence of perforat ion or abscess formation. 2. Hepatic steatosis. ACT 112: Negative or not required by law. Electronically signed by: Slade Cherry M.D. 03/10/2024 4:23 PM PG Care Time/CCT Total # of Minutes Spent Total Time Spent with Patient: Total time spent is greater than 50% in coordination of care (as documented) at patient's floor/unit and/or counseling patient: Coding Level of Care Code 56717 INT INP/OBS CARE 2/55MIN Diagnoses Acute appendicitis with localized peritonitis K35.30 Tobacco dependence F17.200 History of lumbar fusion Z98.1 Hyperlipidemia E78.5 Medical marijuana use Z79.899 Chronic back pain M54.9; G89.29
[2024-03-10] MEDS: cefOXitin 2,000 MG in DEXTROSE 5 % MINI-B 50 ML IV STA (17:50)
[2024-03-10] MEDS: cefOXitin SOD 1,000 MG VIAL ONE ×2 (17:50)
[2024-03-10] MEDS ORDERED: DEXAMETHASONE SOD INJ 4 MG/ML VIAL ONE ×2 (17:52→17:53)
[2024-03-10] MEDS ORDERED: METOPROLOL TARTRATE 1 MG/ML VIAL IV ONE (17:52)
[2024-03-10] MEDS: BUPIVACAINE 0.5 % 5 MG/1 ML MPF 30ML VIAL ONE (18:34)
--- NOTE | 2024-03-10 18:43 | Operative Report ---
PG Post Operative Report Pre & Post Diagnosis Operation Date: 03/10/24 10:30 Pre-Op Diagnosis: Acute appendicitis with localized peritonitis Post-Op Diagnosis: Severe Acute Appendicitis with a contained Perforation I identified the patient and participated in the time-out.: Yes Procedure Operation Date: 03/10/24 10:30 Actual Procedures p Laparoscopic Appendectomy(Not Applicable) - Kj Eller DO, ADEOLA Surgeon Kj Eller DO, ADEOLA Regulatory Leader None Estimated Blood Loss 10 Findings Consistent with Post-Op Diagnosis Evidence of peritonitis in the abdomen. Severe acute appendicitis, partially r etrocecal with contained perforation. Specimens Appendix Anesthesia Type General Complications none Disposition Accompanied Patient To Recovery: No Disposition: Recovery Room Indications 58-year-old male presented with signs and symptoms of acute appendicitis confirmed by CT scan. Plan for laparoscopic appendectomy. The risks of the procedure were discussed, all questions were answered, and the patient agreed to proceed with surgery as planned. Description of Procedure The patient was properly identified, consented, and taken to the operating room where he was placed in the supine position. General endotracheal anesthesia was induced. SCDs and a safety belt were placed. Preoperative antibiotics were administered. A Santos catheter was not placed. The patient's abdomen was prepped and draped in the standard sterile fashion. Surgical timeout was performed and all parties were in agreement that this was the correct patient and procedure to be performed and we continued as planned. An incision was made just to the left and superior to the umbilicus. The Veress needle was inserted and saline drop test confirmed entry into the abdomen. The abdomen was insufflated with carbon dioxide which the patient tolerated without incident. Using the Optiview technique, the abdomen was entered using a 5 mm port and a 5 mm 30 degree scope. Trocar was removed and the abdomen was inspected. There was no damage from initial trocar placement. There appeared to be evidence of some mild to moderate peritonitis within the entirety of the abdomen. This appeared to be more concentrated in the right lower quadrant. No other abnormalities were noted. A 12 mm port was then placed in the left lower quadrant with care not to damage the epigastric vessels, and a 5 mm port was placed in the suprapubic midline with care not to damage the bladder. The patient was placed in the Trendelenburg position and rotated towards the left. The small bowel was swept away from the right lower quadrant. The cecum was grasped with an atraumatic grasper exposing the appendix. The appendix was partially retrocecal. The base appeared healthy but the distal two thirds were severely inflamed. There was some turbid fluid in the right lower quadrant as well as in the pelvis. The Sonicision was used to help mobilize the appendix and a portion of the cecum exposing the remainder of the appendix. During this there was evidence of a contained perforation and purulent drainage was seen draining from the appendix. A window was created between the base of the appendix and the mesoappendix. A booker loaded endoscopic stapler was then used to divide the appendix at its base. The Sonicision was then used to divide the mesoappendix. Hemostasis was good. The appendix was placed in an Endo Catch bag and removed through the umbilical port site. The right lower quadrant and pelvis were copiously irrigated and hemostasis was found to be good. There was a nodular piece of material in the mesoappendix that may have represented the tip of the appendix versus indurated fat. This was excised and included with the specimen. The 12 mm port was removed and the fascia was closed with an 0 Vicryl [id number] suture utilizing the Kevin-Gustabo device. 5 mm trochars were removed and the abdomen was allowed to collapse. The wound was irrigated, and the skin of all ports was closed with 4-0 Monocryl subcuticular sutures. Dermabond was placed over the wounds. The patient was extubated in the operating room and taken to the PACU where he recovered without apparent incident. All sponge, instrument and needle counts were correct at the conclusion of the procedure. The patient tolerated the procedure well. I attest to the content of the Intraoperative Record and any orders documented therein. Any exceptions are noted below.
[2024-03-10] MEDS: LABETALOL HCL IV 5 MG/ML 20ML IV PRN (19:17)
--- NOTE | 2024-03-10 19:32 | Anesthesiology Progress Note ---
Date of Service March 10, 2024 Anesthesia Post Procedure Vital Signs Vital Signs: Temp Pulse Pulse Pulse Resp BP BP 03/10/24 19:30 37.2 C 80 20 142/93 H 03/10/24 19:20 90 24 147/101 H 03/10/24 19:10 100 H 22 162/101 H 03/10/24 19:00 89 20 142/92 H 03/10/24 18:50 36.2 C L 93 H 14 150/94 H 03/10/24 17:15 37.3 C 110 H 19 151/111 H 03/10/24 17:08 03/10/24 17:05 114 H 18 132/99 03/10/24 16:03 112 H 156/116 H 03/10/24 15:42 110 H 20 166/116 H 03/10/24 13:47 36.8 C 122 H 20 161/113 H Pulse Ox O2 Del Method O2 Flow Rate 03/10/24 19:30 93 Nasal Cannula 2 03/10/24 19:20 93 Nasal Cannula 2 03/10/24 19:10 92 Oxymask 2 03/10/24 19:00 97 Oxymask 4 03/10/24 18:50 96 Oxymask 6 03/10/24 17:15 92 Room Air 03/10/24 17:08 Room Air 03/10/24 17:05 92 Room Air 03/10/24 16:03 94 Room Air 03/10/24 15:42 92 03/10/24 13:47 98 Room Air Pain Intensity Lower Abdomen: Pain Intensity: 4 Transfer of Care Handoff Completed per policy Notes Mental Status: alert / awake / arousable Patient Amnestic to Procedure: Yes Nausea / Vomiting: adequately controlled Pain: adequately controlled Airway Patency, RR, SpO2: stable & adequate BP & HR: stable & adequate Hydration State: stable & adequate Anesthetic Complications: no major complications apparent
[2024-03-10] MEDS ORDERED: MoRPHine SULFATE 4 MG/ML 1 ML CARP\\VIAL IV PRN (19:57)
[2024-03-10] MEDS ORDERED: diphenhydrAMINE 50 MG/ML VIAL IV PRN (19:57)
[2024-03-10] MEDS ORDERED: oxyCODONE HCL IR 5 MG TAB (IMMEDIATE RELEASE) PO PRN ×2 (19:57)
[2024-03-10] MEDS ORDERED: MoRPHine SULFATE 2 MG/ML CARP IV PRN (19:57)
[2024-03-10] MEDS: PIPER/TAZO 4.5g in D5W MINI-B 100 ML IV ONE (20:53)
[2024-03-10] MEDS: KETOROLAC TROMETHAMINE 15 MG/ML VIAL IV SCH (20:54)
[2024-03-10] MEDS: LACTATED RINGER'S 1,000 ML IV SCH (20:54)
[2024-03-10] MEDS: ACETAMINOPHEN 500 MG TAB PO SCH (20:54)
[2024-03-11] MEDS: PIPERACILLIN/TAZOBACTAM 4.5 GM in DEXTROSE 5% MINI-B 100 ML IV SCH (01:59)
--- NOTE | 2024-03-11 06:22 | Electrocardiogram Report ---
Test Reason : Blood Pressure : / mmHG Vent. Rate : 122 BPM Atrial Rate : 122 BPM P-R Int : 136 ms QRS Dur : 084 ms QT Int : 316 ms P-R-T Axes : 068 077 074 degrees QTc Int : 450 ms Sinus tachycardia Otherwise normal ECG When compared with ECG of 22-FEB-2010 16:51, Vent. rate has increased BY [address] no longer elevated in Inferior leads Confirmed by Awais Sol ([id number]) on 03/11/2024 6:21:33 AM Referred By: Confirmed By:Awais Sol
--- NOTE | 2024-03-11 07:40 | Surgery Progress Note ---
Date of Service March 11, 2024 Assessment & Plan (1) Acute appendicitis with localized peritonitis: Plan: POD#1 laparoscopic appendectomy Vitals are stable Pt feeling well, pain controlled. Denies nausea/vomiting. + flatus Tolerating clears, will advance to regular diet this AM Continue IV abx while in house, will transition to course of PO at home If diet tolerated, pain controlled, and patient remains stable he may possibly be discharged to home later today F/u in clinic with Dr. Eller in 2 weeks Admission and Anticipated Discharge Date Admission Date: March 10, 2024 Supervising Physician Co-Signing Physician Notes pnt s&e, agree w/ above. POD#1 lap appy w/ contained perforation, feeling much better. Tolerating diet, afebrile, abd soft, incisions w/o infection, nt. wbc 11. d/c to home on 7 days oral abx, f/u in clinic. Subjective Patient reports feeling well. Pain is improved s/p appendectomy. Denies nausea/vomiting. + flatus and voiding. No complaints. Physical Exam Physical Exam: awake/alert, no distress Gastrointestinal (Abdomen): Inspection/Auscultation: + abdominal surgical incision (c/d/i with dermabond, no signs of infection); abdomen not distended Percussion/Palpation: + abdomen tender (mild expected randy incisional discomfort) and abdomen soft Results & Data Vital Signs (Past 12 Hours) Vital Signs Temp Pulse Resp BP Pulse Ox O2 Del Method O2 Flow Rate 03/11/24 07:30 98.6 F 50 L 16 126/73 97 Nasal Cannula 2 03/11/24 03:09 98.2 F 63 16 123/71 96 Nasal Cannula 2 03/10/24 23:25 98.2 F 81 18 125/76 95 Nasal Cannula 2 03/10/24 22:39 98.1 F 72 20 117/75 94 Nasal Cannula 2 03/10/24 21:33 98.2 F 82 18 109/74 94 Nasal Cannula 2 03/10/24 20:44 98.2 F 86 20 122/80 96 Nasal Cannula 2 03/10/24 20:07 97.5 F L 87 20 135/88 96 Nasal Cannula 2 03/10/24 20:03 Nasal Cannula 1 PG Care Time/CCT Total # of Minutes Spent Total Time Spent with Patient: Total time spent is greater than 50% in coordination of care (as documented) at patient's floor/unit and/or counseling patient: Coding Level of Care Code 12994 Post Operative Follow-Up Diagnoses Acute appendicitis with localized peritonitis K35.30
[2024-03-11 09:24] LABS: Basophils # (auto) 0.02 K/uL (0.00-0.20); Basophils % (auto) 0.2 %; Hematocrit (blood only) 38.8 % (42.0-52.0); Hemoglobin 12.8 g/dl (14.0-18.0); Immature Granulocytes # (auto) 0.07 K/uL (0.01-0.20); Immature Granulocytes % (auto) 0.6 %; Lymphocytes # (auto) 1.05 K/uL (1.20-3.40); Lymphocytes % (auto) 9.1 %; Mean Corpuscular Hemoglobin 30.4 pg (25.0-34.0); Mean Corpuscular Volume 92.2 fL (80.0-100.0); Mean Platelet Volume 9.4 fL (9.4-12.4); Monocytes # (auto) 0.84 K/uL (0.11-0.59); Monocytes % (auto) 7.3 %; Neutrophils # (auto) 9.55 K/uL (1.40-6.50); Neutrophils % (auto) 82.8 %; Platelet Count 226 K/uL (130-400); RDW Coefficient of Variation 13.3 % (11.5-14.5); RDW Standard Deviation 44.9 fL (36.4-46.3); Red Blood Count 4.21 M/uL (4.70-6.10); White Blood Count 11.53 K/ul (4.8-10.8)
[2024-03-11 09:26] LABS: Albumin Globulin Ratio 1.4 (0.9-2); Albumin Level 3.6 gm/dl (3.4-5.0); BUN Creatinine Ratio 20.9 (10-20); Bilirubin,Total 0.7 mg/dl (0.2-1.0); Calcium 8.4 mg/dl (8.6-10.3); Creatinine Clr Calc Pharmacy 106.9 ml/min; Est GFR (African American) 108.8 ml/min; Est GFR (Non-African American) 93.9 ml/min; Globulin 2.5 gm/dl (2.5-4.0); Potassium 4.2 mmol/L (3.5-5.1); Total Protein 6.1 gm/dl (6.0-8.3)
--- NOTE | 2024-03-13 14:47 | Discharge Summary ---
Date of Service March 11, 2024 Admission HPI Per Admitting Provider Presented to ED w/ 24 hours of abd pain. [place] a little discomfort and sick over last week. Last night had epigastric pain, this morning migrated to RLQ. No prior abd surgeries, no significant medical problems. No blood thinners. Principal Diagnosis acute appendicitis Discharge Exam awake/alert, no distress Gastrointestinal (Abdomen): Inspection/Auscultation: + abdominal surgical incision (c/d/i with dermabond, no signs of infection); abdomen not distended Percussion/Palpation: + abdomen tender (mild expected randy incisional discomfort) and abdomen soft Discharge Data Allergies Allergy/AdvReac Type Severity Reaction Status Date / Time No Known Allergies Allergy Verified 12/14/23 13:28 Consultations 03/10/24 16:50 ED Decision to Admit Stat Procedures Performed Operation Date: 03/10/24 10:30 Actual Procedures p Laparoscopic Appendectomy(Not Applicable) - Kj Eller, DO, FACS Ordered Studies 03/10/24 15:15 CT Abd and Pelvis [CT abd pelvis IV con only] Stat Hospital Course (1) Acute appendicitis: This is a 58yo male who presented to the [facility] ED on 03/10/24 with abdominal pain. Workup in the ED showed a WBC of 12.[address] a/p concerning for acute appendicitis. The patient was tender to palpation in the RLQ. Patient made NPO with IVF and booked for the OR. On 03/10/24 the patient went to the OR with Dr. Eller for a laparoscopic appendectomy. The patient tolerated the procedure well, see operative report for full details. Post operatively the patient's diet was advanced, pain managed on prn meds, and incisions clean/dry/intact. On POD#1 03/11/24 the patient was deemed stable for discharge to home with a course of PO antibiotics. Total Time Total Time Spent Total Time Spent (In Minutes): 30 Discharge Plan Discharge Items Patient Disposition: Home - Self-Care Reason For Visit: ACUTE APPENDICITIS Discharge Diagnosis: laparoscopic appendectomy Activity: Per Instructions section Lifting: No more than 10 pounds Bathing Comment: may shower; no soaking in tubs/pools x 2 weeks Exercise/Sports: Wait until after follow-up appointment Driving/Machine Use: no driving while taking narcotics for pain Non-emergency contact: Surgeon Call non-emergency contact if: you have any medication questions, your symptoms worsen, your pain is not controlled, you have a fever, your temperature is above 101.5, your wound has increased redness, your wound has increased drainage and your wound pain has increased Follow-up/Referrals: Kj Eller DO, FACS [Physician] - 03/25/24 11:15 am (please call to schedule follow up in clinic within 2 weeks ) Yoseph Bailey DO [Primary Care Provider] - Diet: Regular Addtl Attending Provider Instructions: You may purchase Tylenol and/or Ibuprofen over the counter if needed for additional pain control over the next few days. Take per manufacturers instructions You have skin glue over your incisions called dermabond. you may shower with this on. It will tend to dissolve and fall off within a couple weeks. Do not pick at the skin glue Pending Studies at Discharge: Yes Studies:: surgical pathology Stand-Alone Forms: My [facility] Wine Tastings, Smoking Cessation Medications and DC Order Prescriptions: New oxycodone 5 mg tablet 5 - 10 mg PO Q6H PRN (Reason: pain) Qty: 14 0RF amoxicillin-pot clavulanate 875-125 mg tablet 1 tab PO Q12H MDD 2 10 Days Qty: 20 0RF Continued rosuvastatin [Crestor] 5 mg tablet 5 mg PO DAILY Qty: 90 3RF medical [facility] .Route Rx Instructions: medical card ibuprofen 800 mg Tablet 800 mg PO Q6H PRN (Reason: Pain) Discharge Orders: Discharge Order (Routine); Ordered 03/11/24 Ordered By: Yeny Hoyt Admission Data Admit Date/Time: 03/10/24 18:49 Attending Provider: Kj Eller Admit Provider: Kj Eller Primary Care Provider: Yoseph Bailey Other Providers: Kj Eller Other Interventions: Discharge Summary Assessment (RN) Last Done: 03/11/24 13:48 Coding Level of Care Code 10889 IN/OBS DISCH 30 MIN/LESS Diagnoses Acute appendicitis K35.80
== END 2024-03-11 14:08 | disposition home or self-care (01) ==
LOC: 3E 13:44 → ED 13:44 → 3E 17:08

== ENCOUNTER 2025-06-01 09:20 | Inpatient (IN) ==
[2025-06-01 09:35] VITALS: RESP 18
--- NOTE | 2025-06-01 09:44 | Emergency Department Note ---
History of Present Illness General Chief complaint: Flank Pain Stated complaint: R SIDE PAIN RADIATING TO STOMACH Time Seen by Provider: 06/01/25 09:43 History of Present Illness Maximum Pain Intensity: 9 This is a 59-year-old male who presents to the emergency department via private vehicle with complaints of "right side pain radiating to stomach". The patient notes that he developed some discomfort to the right flank area this past Sunday. No fevers, chills, nausea or vomiting. He then noticed a rash develop. The rash he notes that spread from the right upper quadrant all the way to the right flank and the right upper back. He notes it follows in a line. No known drug allergies. He denies any chest pain or shortness of breath. No fevers or chills. No history of shingles. Home Medications Medication Instructions Recorded Confirmed Type ibuprofen 125 mg-acetaminophen 250 1 tab PO Q8H PRN Pain/Fever 06/01/25 06/01/25 History mg tablet (Advil Dual Action) Allergies Allergy/AdvReac Type Severity Reaction Status Date / Time No Known Allergies Allergy Verified 06/01/25 11:58 Past Med/Surg History Problem List (Updated 04/11/24 @ 00:07 by Background Daemon) Alcohol use Acute right flank pain (Acute) Herpes zoster (Acute) Acute appendicitis (Acute) Abdominal pain (Acute) Chronic back pain Medical marijuana use for severe back pain Acute appendicitis with localized peritonitis Depression Hyperlipidemia Elevated glucose Tobacco dependence Spinal stenosis of lumbar region History of lumbar fusion x2 Surgical History (Updated 04/11/24 @ 00:07 by Background Daemon) History of laparoscopic appendectomy (03/10/24) Laparoscopic Appendectomy(Not Applicable) - Kj Eller DO, FACS H/O colonoscopy 08/2020 History of tooth extraction all teeth Family History Father Diabetes Myocardial infarction Other Clotting disorder No family history of adverse response to anesthesia Denies family history of Ovarian cancer Prostate cancer Breast cancer Colorectal cancer Social History Smoking Status: Current every day smoker Tobacco Type: Cigarettes Cigarettes Per Day: 15; Second Hand Exposure: Yes (parents smoked); Do You Dip or Chew Tobacco: No; Hx Alcohol Use: Yes Alcohol type: beer Alcohol Intake Frequency: 2-4 x/Month Hx Substance Use: Yes Prescribed Medications: Marijuana Last Used Substance: Unknown Last Used Substance Other:: uses daily Preferred Language: Setswana Communication Ability: Effective Visual Impairment: No Limitations Hearing Ability: Hard of Hearing Hollock Maker Required: No Beliefs That Will Affect Care: None marital status: Single Current Living Situation: Family and Significant Other Current Living Situation Comment: Lives with and son current occupational status: employed current occupation: [employer] Feels Safe at Home: Yes Childhood Exposure to Second-Hand Smoke: Yes Dental Care, Regularly: No Physical Activity Frequency: Does not Exercise Physical Activity Frequency Comment: active at work Seatbelt Use: always Sunscreen Use: No Assistive Devices: Denture - Upper, Denture - Lower and Glasses Review of Systems A total of 10 systems reviewed and were otherwise negative Physical Exam Vital Signs Vital Signs - 24 hr 06/01/25 09:32 06/01/25 10:28 06/01/25 11:35 Temperature 36.3 C L Temperature Source Temporal Artery Scan Pulse Rate 107 H 70 Pulse Rate [Right Finger] 76 Respiratory Rate 18 18 Respiratory Effort / Characteristics Non-Labored Spontaneous Respiratory Depth Normal Respiratory Pattern Regular Blood Pressure 140/97 Blood Pressure [Right Arm] 124/78 Blood Pressure Mean 111 Blood Pressure Mean [Right Arm] 93 Pulse Oximetry 96 96 Oxygen Delivery Method Room Air Room Air Sepsis Recent Fever Within 48 Hours No Sepsis New/Unexplained Change in Mental Status N/A Sepsis Action Taken by Nursing No Action Required 06/01/25 12:30 06/01/25 14:20 06/01/25 14:30 Temperature Temperature Source Pulse Rate 72 Pulse Rate [Right Finger] 71 70 Respiratory Rate 18 18 Respiratory Effort / Characteristics Respiratory Depth Respiratory Pattern Blood Pressure Blood Pressure [Right Arm] 130/75 119/76 Blood Pressure Mean Blood Pressure Mean [Right Arm] 93 90 Pulse Oximetry 94 94 Oxygen Delivery Method Room Air Room Air Sepsis Recent Fever Within 48 Hours Sepsis New/Unexplained Change in Mental Status Sepsis Action Taken by Nursing 06/01/25 15:00 Temperature Temperature Source Pulse Rate Pulse Rate [Right Finger] 75 Respiratory Rate 18 Respiratory Effort / Characteristics Respiratory Depth Normal Respiratory Pattern Regular Blood Pressure Blood Pressure [Right Arm] 125/94 Blood Pressure Mean Blood Pressure Mean [Right Arm] 104 Pulse Oximetry 95 Oxygen Delivery Method Room Air Sepsis Recent Fever Within 48 Hours Sepsis New/Unexplained Change in Mental Status Sepsis Action Taken by Nursing VITAL SIGNS - Vital signs and nursing notes were reviewed. Stable and afebrile. GENERAL -59-year-old male appearing his stated age who is in no acute distress. Communicates well with provider and answers questions appropriately. SKIN -vesicular lesions noted to the right upper quadrant that wraps to the right lateral flank and right upper back in a dermatomal distribution. HEAD - NC/AT. EYES - PERRL with EOMI bilaterally. Sclera anicteric. EARS - No deformities of external structures noted on gross examination bilaterally. NOSE - Midline and without cyanosis. No epistaxis or purulent drainage noted. MOUTH/OROPHARYNX - Without perioral cyanosis. NECK - Neck with FROM. No nuchal rigidity. LUNGS -clear to auscultation CARDIAC - RRR ABDOMEN - Abdominal contour normal without pulsations or visible masses. BS normoactive all four quadrants. No tenderness, palpable masses, hepatosplenomegaly, or ascites noted. EXTREMITIES - No clubbing or peripheral cyanosis. +5/5 strength noted in UE/LE bilaterally. NEUROLOGIC - Cranial nerves II through XII grossly intact. PSYCH -alert, oriented and pleasant on exam. Course Administered Medications Discontinued Medications Acyclovir Sodium 850 mg/ (Dextrose) 267 mls @ 250 mls/hr IV NOW ONE; Protocol Stop: 06/01/25 11:17 Last Infusion: 06/01/25 13:07 Dose: Infused Documented By: Admin: 06/01/25 10:45 Dose: 250 mls/hr Documented By: Morphine Sulfate (Morphine Sulfate 4 Mg/Ml 1 Ml Carp\\Vial) 4 mg IV NOW STA Stop: 06/01/25 09:53 Last Admin: 06/01/25 10:15 Dose: 4 mg Documented By: MR Morphine Sulfate (Morphine Sulfate 2 Mg/Ml Carp) 2 mg IV NOW STA Stop: 06/01/25 11:27 Last Admin: 06/01/25 11:33 Dose: 2 mg Documented By: MR Ondansetron HCl (Ondansetron Inj 2 Mg/Ml 2 Ml Vial) 4 mg IV NOW STA Stop: 06/01/25 09:53 Last Admin: 06/01/25 10:15 Dose: 4 mg Documented By: Medical Decision Making Laboratory Data 06/01/25 10:10 06/01/25 10:10 Lab Results 06/01/25 Range/Units 10:10 WBC 5.52 (4.8-10.8) K/ul RBC 5.13 (4.70-6.10) M/uL Hgb 15.7 (14.0-18.0) g/dl Hct 47.2 (42.0-52.0) % MCV 92.0 (80.0-100.0) fL MCH 30.6 (25.0-34.0) pg MCHC 33.3 (32.0-36.0) g/dL RDW Std Deviation 43.8 (36.4-46.3) fL RDW Coeff of Michelle 13.0 (11.5-14.5) % Plt Count 250 (130-400) K/uL MPV 9.3 L (9.4-12.4) fL Immature Gran % (Auto) 0.2 % Neut % (Auto) 72.9 % Lymph % (Auto) 12.9 % Leslie % (Auto) 10.9 % Eos % (Auto) 2.4 % Baso % (Auto) 0.7 % Neut # (Auto) 4.03 (1.40-6.50) K/uL Lymph # (Auto) 0.71 L (1.20-3.40) K/uL Leslie # (Auto) 0.60 H (0.11-0.59) K/uL Eos # (Auto) 0.13 (0.00-0.50) K/uL Baso # (Auto) 0.04 (0.00-0.20) K/uL Immature Gran # (Auto) 0.01 (0.01-0.20) K/uL Sodium 135 L (136-145) mmol/L Potassium 4.1 (3.5-5.1) mmol/L Chloride 102 (98-107) mmol/L Carbon Dioxide 27 (21-32) mmol/L Anion Gap 6 (3-11) BUN 17 (6-23) mg/dl Creatinine 0.90 (0.6-1.4) mg/dl Est Cr Clr Drug Dosing 96.4 ml/min eGFR 99.62 BUN/Creatinine Ratio 18.9 (10-20) Glucose 112 H (70-99(Fasting)) mg/dl Calcium 9.8 (8.6-10.3) mg/dl Total Bilirubin 0.5 (0.2-1.0) mg/dl AST 30 (13-39) U/L ALT 42 (7-52) U/L Alkaline Phosphatase 71 (34-104) U/L Total Protein 7.5 (6.0-8.3) gm/dl Albumin 4.5 (3.4-5.0) gm/dl Globulin 3.0 (2.5-4.0) gm/dl Albumin/Globulin Ratio 1.5 (0.9-2) MDM Narrative Patient was seen and evaluated as above in room B05. Review was performed of triage nursing notes and vital signs. I did review pertinent previous visits and patient history. After obtaining a thorough history and physical examination the above work up was performed. Patient presents for evaluation of right flank pain. On examination there unfortunately is a large area of shingles to the right flank area. This wraps from the right upper quadrant to the right flank into the right upper back. This involves at least 1 if not 2/3 dermatomes of the thoracic region. No sign of secondary bacterial infection. Options of care were discussed with the patient. IV access was established. Labs were drawn. The patient is in quite a bit of pain. IV analgesia ordered as well as IV antiemetics. Labs reveal no leukocytosis or concerning anemia. Mild hyponatremia 135. No evidence of kidney or liver failure. Noting the large area of involvement and level of pain I do believe that IV antivirals and further evaluation and management in the inpatient setting is warranted. IV acyclovir ordered, weight-based per current guidelines. I did confirm dosing with ED clinical pharmacist. Case discussed with the hospitalist service. Please refer to further documentation regarding his stay. GCS: 15 In the evaluation and treatment of this patient the following differential diagnoses were entertained: Herpes zoster, cellulitis, SJS/TENS, acute cholecystitis, among others Impression & Plan Herpes zoster, Acute right flank pain Discharge Plan Visit Data Chief Complaint: Flank Pain Stated Complaint: R SIDE PAIN RADIATING TO STOMACH ED Provider: Saran Marx ED Midlevel Provider: Kapil Conti Discharge Problem: Herpes zoster, Acute right flank pain Patient Disposition: Admitted As Inpatient Condition: Good Discharge Instructions Interventions: ED Discharge Assessment Last Done: 06/01/25 15:25 Forms Stand Alone Forms: [facility] [employer] [facility] Prescriptions Prescriptions: No Action ibuprofen-acetaminophen [Advil Dual Action] 125-250 mg Tablet 1 tab PO Q8H PRN (Reason: Pain/Fever) Referrals Referrals: Yoseph Bailey DO [Primary Care Provider] -
[2025-06-01] MEDS: MoRPHine SULFATE 4 MG/ML 1 ML CARP\\VIAL IV STA (10:15)
[2025-06-01] MEDS: ONDANSETRON INJ 2 MG/ML 2 ML VIAL IV STA (10:15)
[2025-06-01 10:33] LABS: Hematocrit (blood only) 47.2 % (42.0-52.0); Hemoglobin 15.7 g/dl (14.0-18.0); Immature Granulocytes # (auto) 0.01 K/uL (0.01-0.20); Immature Granulocytes % (auto) 0.2 %; Mean Corpuscular Hemoglobin 30.6 pg (25.0-34.0); Mean Corpuscular Volume 92.0 fL (80.0-100.0); Platelet Count 250 K/uL (130-400); RDW Standard Deviation 43.8 fL (36.4-46.3); Red Blood Count 5.13 M/uL (4.70-6.10); White Blood Count 5.52 K/ul (4.8-10.8)
[2025-06-01] MEDS: ACYCLOVIR SOD 850 MG in DEXTROSE 5% 250 ML IV ONE (10:45)
[2025-06-01 10:55] LABS: Alanine Aminotransferase 42.0 U/L (7-52); Albumin Globulin Ratio 1.5 (0.9-2); Alkaline Phosphatase 71.0 U/L (34-104); Anion Gap 6.0 (3-11); Bilirubin,Total 0.5 mg/dl (0.2-1.0); Blood Urea Nitrogen 17.0 mg/dl (6-23); Calcium 9.8 mg/dl (8.6-10.3); Carbon Dioxide 27.0 mmol/L (21-32); Chloride 102.0 mmol/L (98-107); Creatinine Clr Calc Pharmacy 96.4 ml/min; Globulin 3.0 gm/dl (2.5-4.0); Glucose 112.0 mg/dl (70-99(Fasting)); Potassium 4.1 mmol/L (3.5-5.1); Sodium 135.0 mmol/L (136-145); Total Protein 7.5 gm/dl (6.0-8.3)
[2025-06-01] MEDS: MoRPHine SULFATE 2 MG/ML CARP IV STA (11:33)
--- NOTE | 2025-06-01 13:05 | History & Physical Report ---
Date of Service June 01, 2025 Assessment & Plan (1) Herpes zoster: (2) Acute right flank pain: (3) Alcohol use: (4) Tobacco dependence: Plan This patient is a 59-year-old male who presented on 06/01 for a painful vesicular rash wrapping around from his right back to his right abdomen. No prior history of kidney stones. Vital stable at time of admission. #Shingles | disseminated herpes zoster Extensive cutaneous lesions (~3 dermatomes) and visceral involvement Initiate acyclovir 850 mg IV q8h Airborne, contact isolation precautions IV acetaminophen and morphine as needed for pain control May consider adding on gabapentin for neuropathic pain control as needed #Alcohol use Patient reports he drinks 4-6 beers daily He denies prior history of alcohol withdrawal, but is unsure the last time he stopped drinking for multiple consecutive days AWSS at risk protocol with IV Ativan as needed Daily thiamine and folate supplementation #Tobacco dependence Patient reports smoking and chewing tobacco Declines nicotine patch on arrival Encourage cessation #History of lumbar fusion x 2 Patient reports intermittent ambulatory dysfunction and pain shooting down the left leg PT/OT evaluations appreciated Fall precautions Disposition: Admit to [facility] VTE PPx: Lovenox 40 mg SQ q24h History of Present Illness Chief Complaint: Right-sided flank pain Primary Care Provider: Yoseph Bailey DO Mr. Mercado is a 59-year-old male with PMH of spinal stenosis s/p lumbar fusion x 2, HLD, depression, medical marijuana use, alcohol use, and tobacco use. He presented on 06/01 after developing severe right back, flank, and chest pain. Patient first noticed that there was a rash on his body on Tuesday 05/29. He began applying "Calgon" lotion daily, as he thought it might be poison laurie. This did not help his pain. He then developed a steady, "pulling" pain wrapping around his back to his right chest wall. He characterizes it as someone shoving a "stick" into his ribs. Pain radiates around the flank. He rates it 7/10 at present. He has been taking ibuprofen and Tylenol home, which do help with the pain. However, he had difficulty sleeping last night due to the pain. No prior history of shingles immunization. No prior episodes of shingles. He denies prior history of chickenpox as a child. Patient does not take medications on a regular basis. He reports that he drinks 5-6 beers (Budweiser) daily. He denies prior history of alcohol withdrawal, but is unsure of the last time he stopped drinking beer. Patient last drank alcohol the evening of 05/31 (3-4 beers) prior to hospitalization. He also endorses medical marijuana use x 8 years, chewing tobacco, and 15 cigarettes/day. He also endorses history of back surgery x 2, and reports that he has difficulty standing on one leg for too long. Vital stable at time of admission. ED course: Acyclovir 850 mg IV Zofran 4 g IV Morphine 4 mg IV x 1 Morphine 2 mg IV x 1 ROS: Patient endorses chest pain, right flank pain, back pain, pleuritic CP, SOB (attributes to chest/rib pain). Patient denies fever, chills, night-sweats, headaches, changes in vision, dizziness, lightheadedness, chest palpitations, cough, hemoptysis, N/V/D, changes in urinary/bowel habits, or numbness/tingling in the arms or legs. Allergies Allergy/AdvReac Type Severity Reaction Status Date / Time No Known Allergies Allergy Verified 06/01/25 11:58 Home Medications Medication Instructions Recorded Confirmed Type ibuprofen 125 mg-acetaminophen 250 1 tab PO Q8H PRN Pain/Fever 06/01/25 06/01/25 History mg tablet (Advil Dual Action) Past Med/Surg History Problem List (Updated 04/11/24 @ 00:07 by Background Daemon) Alcohol use Acute right flank pain (Acute) Herpes zoster (Acute) Acute appendicitis (Acute) Abdominal pain (Acute) Chronic back pain Medical marijuana use for severe back pain Acute appendicitis with localized peritonitis Depression Hyperlipidemia Elevated glucose Tobacco dependence Spinal stenosis of lumbar region History of lumbar fusion x2 Surgical History (Updated 04/11/24 @ 00:07 by Background Daemon) History of laparoscopic appendectomy (03/10/24) Laparoscopic Appendectomy(Not Applicable) - Kj Eller DO, FACS H/O colonoscopy 08/2020 History of tooth extraction all teeth Family History Father Diabetes Myocardial infarction Other Clotting disorder No family history of adverse response to anesthesia Denies family history of Ovarian cancer Prostate cancer Breast cancer Colorectal cancer Social History Smoking Status: Current every day smoker Tobacco Type: Cigarettes Cigarettes Per Day: 15; Second Hand Exposure: Yes (parents smoked); Do You Dip or Chew Tobacco: No; Hx Alcohol Use: Yes Alcohol type: beer Alcohol Intake Frequency: 2-4 x/Month Hx Substance Use: Yes Prescribed Medications: Marijuana Last Used Substance: Unknown Last Used Substance Other:: uses daily Preferred Language: [place] Communication Ability: Effective Visual Impairment: No Limitations Hearing Ability: Hard of Hearing Tool Carrier Required: No Beliefs That Will Affect Care: None marital status: Single Current Living Situation: Family and Significant Other Current Living Situation Comment: Lives with and son current occupational status: employed current occupation: [employer] Feels Safe at Home: Yes Childhood Exposure to Second-Hand Smoke: Yes Dental Care, Regularly: No Physical Activity Frequency: Does not Exercise Physical Activity Frequency Comment: active at work Seatbelt Use: always Sunscreen Use: No Assistive Devices: Denture - Upper, Denture - Lower and Glasses Review of Systems 2 Review of Systems: See HPI above Physical Exam 2 Physical Exam: General: Mild physical distress secondary to dermatomal pain; pleasant affect; non-toxic appearing; well-nourished; cooperative; SpO2 96% on RA HEENT: normocephalic, atraumatic; no scleral icterus; PERRLA; vision and hearing grossly intact Neck: supple; no lymphadenopathy; trachea midline Skin: warm, dry without signs of tenting; no cyanosis; superficial, blistering, vesicular rash presenting in a dermatomal pattern (across multiple dermatomes) along the right chest wall, flank, and back (see photos below); blisters filled with clear fluid CV: chest wall is TTP surrounding the rash; RRR; S1/S2 normal; no murmurs/rubs/gallops; pulses intact and symmetric at radial, DP, and PT Lungs: no acute respiratory distress; symmetrical chest wall expansion; clear breath sounds across all lung ponce w/o adventitious sounds; no wheezing ABD: Soft, NTP except when palpating the rash; BS present; no rebound/guarding; no distention MSK: no tics or fasciculations; no edema noted in the LEs b/l, nonerythematous Neuro: A&Ox3; normal mood and affect; fluent speech; no focal deficits; sensation grossly intact in the LEs b/l Results & Data Results & Data Vital Signs (Past 12 Hours) Vital Signs Temp Pulse Pulse Resp BP BP Pulse Ox 06/01/25 11:35 76 18 124/78 96 06/01/25 10:28 70 06/01/25 09:32 36.3 C L 107 H 18 140/97 96 O2 Del Method 06/01/25 11:35 Room Air 06/01/25 10:28 06/01/25 09:32 Room Air Laboratory Results Abnormal lab results 06/01/25 Range/Units 10:10 MPV 9.3 L (9.4-12.4) fL Lymph # (Auto) 0.71 L (1.20-3.40) K/uL [place] # (Auto) 0.60 H (0.11-0.59) K/uL Sodium 135 L (136-145) mmol/L Glucose 112 H (70-99(Fasting)) mg/dl Code Status & VTE Plan Code Status Full code PG Care Time/CCT Total # of Minutes Spent Total Time Spent with Patient: Total time spent is greater than 50% in coordination of care (as documented) at patient's floor/unit and/or counseling patient: Coding [place] [address] INT INP/OBS CARE 3/75MIN Patient Type Established History Comprehensive Exam Comprehensive Medical Decision Making High Complexity Diagnoses Herpes zoster B02.9 Acute right flank pain R10.9 Alcohol use F10.90 Tobacco dependence F17.200
[2025-06-01] MEDS ORDERED: ACETAMINOPHEN 325 MG TAB PO PRN (15:54)
[2025-06-01] MEDS ORDERED: MELATONIN 3 MG TAB PO PRN (15:54)
[2025-06-01] MEDS ORDERED: ONDANSETRON INJ 2 MG/ML 2 ML VIAL IV PRN (15:54)
[2025-06-01] MEDS ORDERED: MoRPHine SULFATE 2 MG/ML CARP IV PRN (15:54)
[2025-06-01] MEDS: MoRPHine SULFATE 2 MG/ML CARP IV PRN (16:24)
[2025-06-01] MEDS: ACYCLOVIR SOD 850 MG in DEXTROSE 5% 250 ML IV SCH (18:44)
[2025-06-01] MEDS: ENOXAPARIN INJ 40 MG/0.4 ML SYR SQ SCH (20:44)
[2025-06-02 06:37] LABS: Hematocrit (blood only) 45.9 % (42.0-52.0); Hemoglobin 15.6 g/dl (14.0-18.0); Immature Granulocytes # (auto) 0.01 K/uL (0.01-0.20); Immature Granulocytes % (auto) 0.2 %; Mean Corpuscular Hemoglobin 31.0 pg (25.0-34.0); Mean Corpuscular Volume 91.1 fL (80.0-100.0); Platelet Count 237 K/uL (130-400); RDW Standard Deviation 42.6 fL (36.4-46.3); Red Blood Count 5.04 M/uL (4.70-6.10); White Blood Count 4.83 K/ul (4.8-10.8)
[2025-06-02 06:58] LABS: Alanine Aminotransferase 35.0 U/L (7-52); Albumin Globulin Ratio 1.3 (0.9-2); Alkaline Phosphatase 66.0 U/L (34-104); Anion Gap 8.0 (3-11); Bilirubin,Total 0.4 mg/dl (0.2-1.0); Blood Urea Nitrogen 12.0 mg/dl (6-23); Calcium 9.6 mg/dl (8.6-10.3); Carbon Dioxide 27.0 mmol/L (21-32); Chloride 99.0 mmol/L (98-107); Creatinine Clr Calc Pharmacy 93.3 ml/min; Globulin 3.2 gm/dl (2.5-4.0); Glucose 91.0 mg/dl (70-99(Fasting)); Potassium 4.1 mmol/L (3.5-5.1); Sodium 134.0 mmol/L (136-145); Total Protein 7.4 gm/dl (6.0-8.3)
[2025-06-02 08:03] VITALS: BP 140/99; PULSE 102; TEMP 98.6; O2SAT 96
[2025-06-02] MEDS: FOLIC ACID 1 MG TAB PO SCH (08:41)
[2025-06-02] MEDS: THIAMINE HCL 100 MG TAB PO SCH (08:41)
[2025-06-02 11:44] LABS: Appearance Urine Clear (Clear); Glucose Urine UA Negative (Negative)
[2025-06-02] MEDS ORDERED: GABAPENTIN 100 MG CAP PO PRN (11:58)
[2025-06-02] MEDS: GABAPENTIN 100 MG CAP PO STA (12:44)
--- NOTE | 2025-06-02 12:56 | Discharge Summary ---
Discharge Summary Date of Service June 02, 2025 Principal Dx & Hospital Course #1 = Principal Diagnosis (1) Herpes zoster: (2) Acute right flank pain: (3) Alcohol use: (4) Tobacco dependence: Plan This patient is a 59-year-old male who presented on 06/01 for a painful vesicular rash wrapping around from his right back to his right abdomen. No prior history of kidney stones. Vital stable at time of admission. Day of discharge 06/02: Mr. Mercado reports he slept well last night. He has been eating and drinking well, and getting up to the bathroom without any difficulty. The pain along his rash is a "burning" type pain this morning. It did keep him up at night. He reports the pain around his stomach right now is a 2 out of 10. He reports the morphine helps. No itching. However the vesicles are beginning to "dry" which is leading to a burning/cracking pain, per patient. Patient lives with his and son at home. His has had shingles in the past (approximately 10 to 12 years ago). Patient's son is 17 years old. Patient does not believe his son has ever had chickenpox or shingles in the past, but his son is up-to-date on his chickenpox vaccine. Education provided regarding isolation precautions upon return home; recommended keeping the rash completely covered until vesicles/blisters begin to scab over. ROS: Patient endorses abdominal pain around his rash, and burning around the rash extending to the back. Patient denies fever, chills, dizziness/lightheadedness with standing, chest pain, SOB, cough, N/V/D, itching around the rash, changes in urinary bowel habits, or numbness or tingling going down the arms or legs. #Shingles | disseminated herpes zoster Extensive cutaneous lesions (~3 dermatomes) and visceral involvement Patient received acyclovir 850 mg IV q8h x 2 days in the hospital Airborne, contact isolation precautions while hospitalized Mild improvement from time of admission; while patient still exhibits vesicular/fluid-filled lesions, multiple lesions are beginning to scab over Touch base with infection control, recommended contact precautions upon return home and frequent handwashing Gabapentin 100 mg p.o. TID PRN for neuropathic pain Patient counseled on the side effects of gabapentin; told to not to drive or operate heavy machinery while taking Calamine lotion was also recommended for skin irritation Will plan to send patient home on acyclovir 800 mg p.o. 5 times daily x 10 days #Alcohol use Patient reports he drinks 4-6 beers daily He denies prior history of alcohol withdrawal, but is unsure the last time he stopped drinking for multiple consecutive days AWSS at risk protocol with IV Ativan as needed Daily thiamine and folate supplementation while inpatient Encourage cessation #Tobacco dependence Patient reports smoking and chewing tobacco Declines nicotine patch on arrival Encourage cessation #History of lumbar fusion x 2 Patient reports intermittent ambulatory dysfunction and pain shooting down the left leg PT/OT evaluations appreciated Fall precautions Disposition: Discharge home; patient received extensive education regarding contact isolation precautions until patient's blisters began to scab over Notes For Next Care Provider Patient was hospitalized from 06/01 -06/02 for an acute shingles infection. He received acyclovir 10mg/kg q8h while in the hospital. He will be discharged home on acyclovir 800 mg 5 times daily x 10 days. We also put in a prescription for gabapentin 100 mg p.o. TID PRN for neuropathic pain as well as calamine lotion for skin irritation. Recommend BMP prior to transitional care appointment to assess renal function while patient is on acyclovir. Patient's renal function was normal at time of discharge (creatinine 0.93; EGFR 93.9). Admission HPI Per Admitting Provider Mr. Mercado is a 59-year-old male with PMH of spinal stenosis s/p lumbar fusion x 2, HLD, depression, medical marijuana use, alcohol use, and tobacco use. He presented on 06/01 after developing severe right back, flank, and chest pain. Patient first noticed that there was a rash on his body on Tuesday 05/29. He began applying "Calgon" lotion daily, as he thought it might be poison laurie. This did not help his pain. He then developed a steady, "pulling" pain wrapping around his back to his right chest wall. He characterizes it as someone shoving a "stick" into his ribs. Pain radiates around the flank. He rates it 7/10 at present. He has been taking ibuprofen and Tylenol home, which do help with the pain. However, he had difficulty sleeping last night due to the pain. No prior history of shingles immunization. No prior episodes of shingles. He denies prior history of chickenpox as a child. Patient does not take medications on a regular basis. He reports that he drinks 5-6 beers (Budweiser) daily. He denies prior history of alcohol withdrawal, but is unsure of the last time he stopped drinking beer. Patient last drank alcohol the evening of 05/31 (3-4 beers) prior to hospitalization. He also endorses medical marijuana use x 8 years, chewing tobacco, and 15 cigarettes/day. He also endorses history of back surgery x 2, and reports that he has difficulty standing on one leg for too long. Vital stable at time of admission. ED course: Acyclovir 850 mg IV Zofran 4 g IV Morphine 4 mg IV x 1 Morphine 2 mg IV x 1 ROS: Patient endorses chest pain, right flank pain, back pain, pleuritic CP, SOB (attributes to chest/rib pain). Patient denies fever, chills, night-sweats, headaches, changes in vision, dizziness, lightheadedness, chest palpitations, cough, hemoptysis, N/V/D, changes in urinary/bowel habits, or numbness/tingling in the arms or legs. Admission Exam Per Admitting Provider General: Mild physical distress secondary to dermatomal pain; pleasant affect; non-toxic appearing; well-nourished; cooperative; SpO2 96% on RA HEENT: normocephalic, atraumatic; no scleral icterus; PERRLA; vision and hearing grossly intact Neck: supple; no lymphadenopathy; trachea midline Skin: warm, dry without signs of tenting; no cyanosis; superficial, blistering, vesicular rash presenting in a dermatomal pattern (across multiple dermatomes) along the right chest wall, flank, and back (see photos below); blisters filled with clear fluid CV: chest wall is TTP surrounding the rash; RRR; S1/S2 normal; no murmurs/rubs/gallops; pulses intact and symmetric at radial, DP, and PT Lungs: no acute respiratory distress; symmetrical chest wall expansion; clear breath sounds across all lung ponce w/o adventitious sounds; no wheezing ABD: Soft, NTP except when palpating the rash; BS present; no rebound/guarding; no distention MSK: no tics or fasciculations; no edema noted in the LEs b/l, nonerythematous Neuro: A&Ox3; normal mood and affect; fluent speech; no focal deficits; sensation grossly intact in the LEs b/l Discharge Exam General: No acute distress; pleasant affect; non-toxic appearing; well- nourished; cooperative; SpO2 96% on RA HEENT: normocephalic, atraumatic; no scleral icterus; PERRLA; vision and hearing intact Neck: supple; trachea midline Skin: warm, dry without signs of tenting; no cyanosis; vesicular rash is still present with blisters in multiple stages of scabbing over; fluid-filled vesicles are still present CV: chest wall is TTP surrounding the rash site; RRR; S1/S2 normal; no murmurs/rubs/gallops; pulses intact and symmetric at radial, DP, and PT Lungs: no acute respiratory distress; symmetrical chest wall expansion; clear breath sounds across all lung ponce w/o adventitious sounds; no wheezing ABD: Soft, NTP except when palpating the rash; BS present; no rebound/guarding; no distention MSK: no tics or fasciculations; no edema noted in the LEs b/l, nonerythematous Neuro: A&Ox3; normal mood and affect; fluent speech; no focal deficits; sensation grossly intact in the lower extremities bilaterally assessed via light touch Discharge Plan Discharge Items Patient Disposition: Home - Self-Care Reason For Visit: SHINGLES Discharge Diagnosis: Disseminated herpes zoster (shingles) Condition on Discharge: Good Activity: As commented below Activity Comment: Gradually resume previous activity as tolerated Lifting: Gradually increase as tolerated Non-emergency contact: Primary Care Provider Call non-emergency contact if: you have any medication questions, your symptoms worsen, your pain is not controlled, your pain is worsening, you have a fever and your wound has increased drainage Follow-up/Referrals: Yoseph Bailey, [Primary Care Provider] - Diet: Regular Addtl Attending Provider Instructions: You were hospitalized at [facility] from 06/01 - 06/02 for pain associated with a rash along the back, right flank, and right chest wall. This rash is suspected to be secondary to a herpes zoster infection (AKA "shingles"). The treatment for shingles is a antiviral medication called "acyclovir". You received an IV version of this antiviral medication while in the hospital. At time of discharge, your vital signs are currently stable, and your blood work is not consistent with signs of severe infection. New prescriptions: - Acyclovir 800 mg by mouth 5 times daily x 10 days - Gabapentin 100 mg up to 3 times daily as needed for neuropathic pain Gabapentin is a medication taken for neuropathic pain. Please do not drive or operate heavy machinery while taking gabapentin, as one of the main side effects of gabapentin includes dizziness/drowsiness. If your pain is not controlled with gabapentin, you may also benefit from gewv-vta-yxejvdo pain medication such as acetaminophen (AKA "Tylenol") 500 mg tablets. Maximum daily dosage: Do not to exceed 3000 mg of Tylenol daily. For skin irritation, we may recommend you obtain oumk-jrw-aemtzse calamine lotion, which can apply 3-4 times daily as needed. Please plan to follow-up with your PCP in the next 1 to 2 weeks for a transitional care appointment. Prior to this appointment, we recommend you have a blood test called a "basic metabolic panel" to assess your kidney function, which can be affected by medications such as acyclovir. Your kidney function is normal at time of discharge. We have attached several pamphlets providing additional education regarding shingles infections. Until your blisters completely scab over, it is recommended that you avoid contact with people who may be at increased risk for transmission. Please avoid contact with women, infants, and people with compromised immune symptoms. The risk of transmission is also higher with people who have never had chickenpox or shingles in the past. Please remember to keep your rash completely covered until blisters/vesicles scabbed over. Please also maintain good hand hygiene; you should be washing your hands regularly throughout the day, and especially whenever you come into contact with your rash. If you develop any new or worsening symptoms, such as fever, chills, intractable chest pain, burning pain along the rash, headache, changes in vision, or trouble breathing, please return to the Emergency Department immediately. Is a pleasure taking care of you. Please reach out any questions or concerns. Sincerely, The hospital medicine team at [facility] Pending Studies at Discharge: No Stand-Alone Forms: [employer], Smoking Cessation Medications and DC Order Prescriptions: New gabapentin 100 mg Capsule 100 mg PO TID PRN (Reason: Neuropathic pain) Qty: 14 0RF Rx Instructions: Take 1 capsule by mouth up to 3 times daily as needed for neuropathic pain Do not operate heavy machinery or drive while taking acyclovir 800 mg tablet 800 mg PO 5XD Qty: 50 0RF Rx Instructions: space evenly during waking hours Take 1 tablet by mouth 5 times daily x 10 days Continued ibuprofen-acetaminophen [Advil Dual Action] 125-250 mg Tablet 1 tab PO Q8H PRN (Reason: Pain/Fever) Discharge Orders: Discharge Order (Routine); Ordered 06/02/25 Ordered By: Teddy Babb/Other Patient Handouts: Shingles (Herpes Zoster), ED Shingles (Herpes Zoster) Admission Data Admit Date/Time: 06/01/25 13:38 Attending Provider: Tony Fletcher Admit Provider: Tony Fletcher Primary Care Provider: Yoseph Bailey Other Providers: Tony Fletcher Hospital Stay Data Consultations 06/01/25 11:23 ED Decision to Admit Stat Pending Results Patient Have Any Pending Studies at Discharge: No Discharge Instructions Given to Patient (Per Discharging Provider) You were hospitalized at [facility] from 06/01 - 06/02 for pain associated with a rash along the back, right flank, and right chest wall. This rash is suspected to be secondary to a herpes zoster infection (AKA "shingles"). The treatment for shingles is a antiviral medication called "acyclovir". You received an IV version of this antiviral medication while in the hospital. At time of discharge, your vital signs are currently stable, and your blood work is not consistent with signs of severe infection. New prescriptions: - Acyclovir 800 mg by mouth 5 times daily x 10 days - Gabapentin 100 mg up to 3 times daily as needed for neuropathic pain Gabapentin is a medication taken for neuropathic pain. Please do not drive or operate heavy machinery while taking gabapentin, as one of the main side effects of gabapentin includes dizziness/drowsiness. If your pain is not controlled with gabapentin, you may also benefit from hqfw-kwg-emlgavq pain medication such as acetaminophen (AKA "Tylenol") 500 mg tablets. Maximum daily dosage: Do not to exceed 3000 mg of Tylenol daily. For skin irritation, we may recommend you obtain epqx-rbu-dtpbenz calamine lotion, which can apply 3-4 times daily as needed. Please plan to follow-up with your PCP in the next 1 to 2 weeks for a transitional care appointment. Prior to this appointment, we recommend you have a blood test called a "basic metabolic panel" to assess your kidney function, which can be affected by medications such as acyclovir. Your kidney function is normal at time of discharge. We have attached several pamphlets providing additional education regarding shingles infections. Until your blisters completely scab over, it is recommended that you avoid contact with people who may be at increased risk for transmission. Please avoid contact with women, infants, and people with compromised immune symptoms. The risk of transmission is also higher with people who have never had chickenpox or shingles in the past. Please remember to keep your rash completely covered until blisters/vesicles scabbed over. Please also maintain good hand hygiene; you should be washing your hands regularly throughout the day, and especially whenever you come into contact with your rash. If you develop any new or worsening symptoms, such as fever, chills, intractable chest pain, burning pain along the rash, headache, changes in vision, or trouble breathing, please return to the Emergency Department immediately. Is a pleasure taking care of you. Please reach out any questions or concerns. Sincerely, The hospital medicine team at [facility] Total Time Total Time Spent Total Time Spent (In Minutes): 35 Coding [place] [address] INP/OBS DISCH >30 MIN Patient Type Established Medical Decision Making High Complexity Diagnoses Herpes zoster B02.9 Acute right flank pain R10.9 Alcohol use F10.90 Tobacco dependence F17.200
== END 2025-06-02 16:06 | disposition home or self-care (01) | DRG 866 ==
LOC: ED 09:20 → 3E 13:38